=== PATIENT | female | born 1950 | race Caucasian/White ===

== ENCOUNTER 2017-06-27 16:24 | Inpatient (IN) | payer MEDICARE ==
[2017-06-27 16:49] LABS: Actual Bicarbonate (HCO3a) 26.5 mEq/L (22-26); Base Excess (BEa) -6.6 mEq/L (0 (+/-) 2.5); Hematocrit-ABG 54.2 % (36.0-47.0); Hemoglobin (Hb) 16.3 g/dL (12.0-16.0); O2 Tension (PaO2) 93.4 mmHg (80.0-100.0)
[2017-06-27] MEDS ORDERED: Propofol 1,000 MG/100 ML VIAL IV ONE (16:54)
[2017-06-27] MEDS ORDERED: Succinylcholine Chloride 20 MG/ML 10 ml SYRINGE FS ONE (16:54)
[2017-06-27 17:09] LABS: Hemoglobin 17.7 g/dL (12.0-16.0); INR-International Normal Ratio 2.1; Mean Corpuscular HGB CONC 31.9 g/dL (32.0-36.0); Mean Platelet Volume 7.3 fL (7.4-10.4); Platelet Count 199 thou/uL (130-400); Prothrombin Time 23.9 SEC (12.0-14.7); RBC Distribution Width 15.4 % (11.5-14.5); Red Blood Cell (RBC) Count 5.06 mill/uL (4.20-5.40); White Blood Cell (WBC) Count 9.1 thou/uL (4.8-10.8)
[2017-06-27 17:23] LABS: ALT (SGPT) 666 U/L (8-55); AST (SGOT) 677 U/L (5-34); Albumin 3.8 g/dL (3.4-4.8); Alkaline Phosphatase 53 U/L (40-150); Anion Gap 22 mmol/L (10-20); BUN (Urea Nitrogen) 108 mg/dL (9.8-20.1); Bilirubin, Total 0.8 mg/dL (0.2-1.2); Calc. Creatinine Clearance 0 mL/min (70-130); Calcium 8.9 mg/dL (7.8-10.44); Carbon Dioxide 22 mmol/L (23-31); Chloride 91 mmol/L (98-107); Estimated GFR-MDRD 13; Globulin 2.5 g/dL (2.4-3.5); Glucose 141 mg/dL (80-115); Protein, Total 6.3 g/dL (6.0-8.3); Sodium 129 mmol/L (136-145)
[2017-06-27 17:24] LABS: Acetaminophen Less than 6.0 mcg/mL (10.0-30.0); Alcohol Less than 10 mg/dL (Less than 10); Salicylate Less than 8.0 mg/dL (15.0-30.0)
[2017-06-27 17:27] LABS: Troponin I 0.135 ng/mL (< 0.028)
[2017-06-27 17:28] LABS: PTT Greater than 250.0 SEC (22.9-36.1)
[2017-06-27 17:29] LABS: CKMB 8.7 ng/mL (0-6.6)
[2017-06-27] MEDS ORDERED: Vecuronium 10 MG VIAL ONE (17:29)
[2017-06-27] MEDS ORDERED: Water For Inject, Bacteriostat 30 ML ONE (17:30)
[2017-06-27 17:32] LABS: Band 17 % (5-11); Giant Platelets SLIGHT; Large Platelets SLIGHT; Lymphocytes 4 % (21-51); MDiff Complete? YES; Macrocytosis MODERATE=16-30 cells (100X) (0-5/hpf); Monocytes 4 % (0-10); Neutrophil 75 % (42-75); Nucleated RBC 2 % (0); PLT Morphology Comment Appears Adequate; Polychromasia MODERATE = 3-4 cells (100X) (0-2/hpf)
--- NOTE | 2017-06-27 17:36 | RAD ---
PORTABLE CHEST ONE VIEW 06/27/17 at 4:30 p.m. HISTORY: Respiratory failure. Altered mental status. COMPARISON: Comparison made with exam of 07/23/15. FINDINGS/IMPRESSION: There is an endotracheal tube with tip just below the level of the clavicular heads. The nasogastric tube can be traced into the stomach. The heart size is normal. The lungs are well expanded without co nfluent areas of consolidation, pneumothorax, eric pulmonary edema or pleural effusions. There is co ntinued blunting of the left lateral costophrenic angle. Bilateral calcified breast implants are pres ent. POS: [facility]
--- NOTE | 2017-06-27 17:39 | RAD ---
ABDOMEN ONE VIEW: 06/27/17 HISTORY: Nasogastric tube placement. FINDINGS/IMPRESSION: Tip of the nasogastric tube is in the projection of the stomach in the left upper quadrant. The bowel gas pattern is unremarkable. There are degenerative changes in the spine. POS: [facility]
[2017-06-27 17:43] LABS: Bilirubin Small (Negative); Blood, Urine Large (Negative); Glucose, Urine (Dipstick) Negative (Negative); Leukocyte Moderate (Negative); Nitrite Negative (Negative); Protein, Urine (Dipstick) > or equal to 300 mg/dL (Neg-Trace); pH, Urine 5.5 (5.0-9.0)
[2017-06-27 17:45] LABS: Clarity Cloudy (Clear); Specific Gravity, Urine 1.022 (1.002-1.036)
[2017-06-27 17:55] LABS: Amphetamine Not Detected (NotDetected); Bacteria/HPF 4+ HPF (None Seen); Barbiturates Screen Not Detected (NotDetected); Benzodiazepine Screen Not Detected (NotDetected); Cocaine Metabolite Screen Not Detected (NotDetected); Medtox Control Line Valid? VALID (VALID); Medtox Reader # READER 4; Methadone Not Detected (NotDetected); Methamphetamine Not Detected (NotDetected); Opiate Screen Not Detected (NotDetected); Oxycodone Screen Not Detected (NotDetected); Pathc Cast-AUWi Flag 1.46 (0-2.49); Phencyclidine (PCP) Not Detected (NotDetected); Squamous Epithelial 0-3 HPF (0-3); THC/Cannabinoid Screen Not Detected (NotDetected); Tricyclic Screen Not Detected (NotDetected)
[2017-06-27 18:00] LABS: Actual Bicarbonate (HCO3a) 19.9 mEq/L (22-26); Base Excess (BEa) -6.5 mEq/L (0 (+/-) 2.5); CO2 Tension 42.6 mmHg (35.0-45.0); Hematocrit-ABG 49.2 % (36.0-47.0); Hemoglobin (Hb) 15.4 g/dL (12.0-16.0); O2 Tension (PaO2) 228.9 mmHg (80.0-100.0); pH, Arterial 7.29 (7.35-7.45)
[2017-06-27 18:03] LABS: Analyzer IN Cardio ER; Puncture Site RRA
[2017-06-27 18:05] LABS: Analyzer IN Cardio ER; CO2 Tension 94.2 mmHg (35.0-45.0); Puncture Site RRA; pH, Arterial 7.07 (7.35-7.45)
[2017-06-27 18:08] LABS: Hyaline Casts/LPF 0-3 HYALINE CAST LPF (0-3 Hyaline); RBC/HPF GREATER THAN 50-TNTC HPF (0-3); Yeast-All Forms None Seen HPF (None Seen)
[2017-06-27] MEDS ORDERED: Piperacillin/Tazobactam 4.5 GM in Sodium Chloride 0.9% 100 ML IVPB SCH (18:45)
--- NOTE | 2017-06-27 18:51 | RAD ---
PORTABLE CHEST ONE VIEW 06/27/17 at 5:12 p.m. HISTORY: Respiratory failure, central line placement. FINDINGS/IMPRESSION: There has been interval placement of a right internal jugular central line with tip in the projection of the SVC. No pneumothoraces are seen. the remainder of the exam is otherwise stable since earlier exam of 4:30 p.m. POS: [facility]
[2017-06-27] MEDS ORDERED: Sodium Bicarb 50 MEQ/50 ML Abboject 8.4% SYRINGE ONE (19:50)
[2017-06-27] MEDS ORDERED: Calcium Gluc 4.6 MEQ/10 ML (100 MG/ML) ONE (19:50)
[2017-06-27] MEDS ORDERED: Insulin Regular 300 UNITS/3 ML VIAL ONE (19:50)
[2017-06-27] MEDS ORDERED: Norepinephrine 8 MG/0.9% NS 250 ML IVPB PRN (20:08)
[2017-06-27] MEDS ORDERED: Bisacodyl 5 MG TAB PO PRN (20:08)
[2017-06-27] MEDS ORDERED: Bisacodyl 10 MG SUPP PR PRN (20:08)
[2017-06-27] MEDS ORDERED: Ondansetron HCl/PF 4 MG/2 ML Vial IVP PRN (20:08)
[2017-06-27] MEDS ORDERED: Acetaminophen 650 MG Suppository PR PRN (20:08)
[2017-06-27] MEDS ORDERED: RENALLY ADJUST ABX IVPB PRN (20:13)
--- NOTE | 2017-06-27 21:23 | CT ---
CT BRAIN WITHOUT CONTRAST: 06/27/17 HISTORY: Altered mental status. FINDINGS: No previous exams for comparison. There is a few foci of increased attenuation in the right subarachn oid space of the right anterior frontal lobe. Possibility of this representing acute hemorrhage canno t be excluded. No transcortical infarct or midline shift are seen. The ventricular size is normal. Th ere are patchy areas of decreased attenuation in the periventricular white matter consistent with chr onic small vessel ischemic disease. There is coarse calcification in the right posterior centrum semi ovale. The bony calvarium is intact. The visualized paranasal sinuses and mastoid air cells are well aerated. IMPRESSION: Probable small amount of acute subarachnoid hemorrhage. A followup exam is recommended. Discussed over the telephone with ER physician, Dr. Ary Mcfadden at 9:02 p.m. POS: [facility]
[2017-06-27] MEDS ORDERED: Dextrose 50% Abboject 50 ML SYRINGE SLOW IVP SCH (21:30)
[2017-06-27 21:47] LABS: Lactic Acid 2.7 mmol/L (0.5-2.2)
--- NOTE | 2017-06-27 21:48 | HP ---
PRIMARY CARE PHYSICIAN: Unknown. CHIEF COMPLAINT: Mental status changes. HISTORY OF PRESENT ILLNESS: Ms. Mejia is a 66-year-old lady, who was seen at [facility] on 06/27/2017. By the time I saw Ms. Mejia, family members were not available. She is intubated and mechanically v entilated, unable to provide any history or review of systems. Collateral history was obtained from review of medical record as well as discussion with the emergency room physician. She was reportedly found by family members, being minimally responsive and had agonal breathing. EMS was called. STEMI protocol was activated. The patient was only responsive to painful stimuli at th at time. She was also hypotensive. In the emergency room, she was seen by Cardiology Service. It w as felt that her presentation was not secondary to ST-elevation myocardial infarction. While in the emergency room, she continued to worsen in terms of lethargy. She was intubated for air way protection. She also had a right subclavian line placed because of hypotension. REVIEW OF SYSTEMS: Could not be completed because of patient's intubated status. PAST MEDICAL HISTORY: Significant for minimal coronary artery disease on coronary angiogram in 08/06 15, medication noncompliance, tobacco use, pulmonary hypertension of unknown etiology. PAST SURGICAL HISTORY: Hysterectomy. ALLERGIES: ESTROGEN, PROCAINE. HOME MEDICATIONS: Unable to obtain. SOCIAL HISTORY: She is a current smoker. FAMILY HISTORY: Hypertension in her mother, diabetes mellitus in her maternal grandmother. PHYSICAL EXAMINATION: GENERAL: Ms. Mejia is intubated and mechanically ventilated. VITAL SIGNS: Blood pressure is 125/76. Pulse is 77. She is breathing at rate of 20 and saturating 100% on ventilator. She is afebrile. EYES: No scleral icterus. No conjunctival pallor, moist mucosal membranes. Pupils are 3 mm bilater ally, reactive to light. ENT: Endotracheal tube present. NECK: Trachea is midline, no thyromegaly. RESPIRATORY: Accessory muscles of breathing are not active. Chest wall movements are symmetric bila terally. LUNGS: Reveals expiratory wheeze. CARDIOVASCULAR: S1 and S2 are heard, regular. Peripheral pulses palpable. No pericardial rub. She has a right subclavian central line. ABDOMEN: Soft, no guarding or rigidity, bowel sounds are heard. No hepatomegaly or splenomegaly. NEUROLOGICAL: Full neurologic examination not possible secondary to patient's noncooperation. Pupil s as described above. No facial droop. The patient is currently not moving her extremities spontane ously. Deep tendon reflexes are 2+. Plantar reflexes are equivocal bilaterally. MUSCULOSKELETAL: No spontaneous extremity movements at this time. SKIN: No rashes or subcutaneous nodules. PSYCHIATRIC: Unable to assess motor, affect, or orientation to person, place, or time. LABORATORY DATA: Ms. Mejia's labs and investigations were reviewed. I reviewed her electrocardiogr am, which shows normal sinus rhythm with ST depressions in the inferior and anterior lateral leads. I also reviewed her chest x-ray, which does not show any pulmonary infiltrates. Laboratory investiga tion show a normal white count, elevated band neutrophils of 17%, elevated hemoglobin of 17.7, normal platelet count. INR 2.1. Sodium 129, potassium elevated at 6.0, anion gap elevated at 22, blood ur ea nitrogen elevated at 108, creatinine elevated at 3.54, last known creatinine 0.76 on 08/21/2016, l actic acid elevated at 3.1, AST elevated at 677, ALT elevated at 666, normal total bilirubin, normal alkaline phosphatase, indeterminate troponin I of 0.135, elevated BNP of 3689. Urinalysis positive f or protein, ketones, blood, bilirubin, and leukocyte esterase, unremarkable urine toxicology screen, and arterial blood gases with pH of 7.07, pCO2 of 94.2, and pO2 of 93.4. The arterial blood gases have subsequently improved after starting mechanical ventilation, with a pH of 7.29, pCO2 of 42.6, and pO2 of 228.9. ASSESSMENT AND PLAN: Ms. Mejia is a 66-year-old lady, who was seen at [facility] on 06/27/2017. Her problem list includes: 1. Acute respiratory failure: The etiology is unclear, could be secondary to chronic obstructive pu lmonary disease versus infection. I should note that RT reports that patient had copious amounts of thick-yellow secretions on suctioning. The patient will be admitted to the Critical Care Unit for fu rther management. She will be started on broad-spectrum antibiotics. 2. Acute kidney injury: Likely prerenal. We will provide patient with intravenous hydration and re check her creatinine and electrolytes. If not improving, Nephrology Service consultation may be need ed. 3. Hypotension: The patient is currently on Levophed drip, we will continue. 4. Hyperkalemia: The patient is receiving treatments to decrease potassium level. We will recheck her potassium level. 5. Hyponatremia: Provide intravenous fluids, recheck sodium level. 6. Urinary tract infection. Suspected, based on urinalysis. We will continue antibiotics. 7. Supratherapeutic INR: Unclear whether patient is on any anticoagulation. She was transferred fr om this facility to [place] for further workup of her pulmonary hypertension in the past. For now, hailey lawton is awaiting a CT scan of the brain to rule out intracranial bleed, etc. 8. Indeterminate troponin I. Unlikely to be secondary to coronary artery disease, given her recent cardiac catheterization in 2016. Many thanks for allowing me to participate in Ms. Mejia's care. Please feel free to contact me with any questions or concerns. LEVEL OF RISK: High. LEVEL OF COMPLEXITY: High.
[2017-06-27] MEDS ORDERED: Propofol 1,000 MG/100 ML VIAL IV PRN (22:12)
[2017-06-27] MEDS ORDERED: fentaNYL Citrate/PF 2,000 MCG in Sodium Chloride 0.9% 60 ML IV SCH (22:12)
[2017-06-27] MEDS ORDERED: Morphine 2 MG/ML SYRINGE SLOW IVP PRN (22:12)
[2017-06-27] MEDS ORDERED: DISCONTINUE PREVIOUS NARCOTIC PAIN MEDICATIONS AND BENZODIAZEPINES FS SCH (22:12)
[2017-06-27] MEDS ORDERED: Lorazepam 2 MG/ML VIAL SLOW IVP PRN (22:12)
[2017-06-27 23:36] LABS: Potassium, Urine 38.1 mmol/L
[2017-06-28] MEDS: Sodium Chloride 0.9% 1,000 ML IV SCH ×3 (00:45→22:14)
[2017-06-28] MEDS: Piperacillin/Tazobactam 2.25 GM in Sodium Chloride 0.9% 100 ML IVPB SCH ×2 (01:36→11:44)
[2017-06-28 04:51] LABS: Anion Gap 21 mmol/L (10-20); BUN (Urea Nitrogen) 101 mg/dL (9.8-20.1); Calc. Creatinine Clearance 15 mL/min (70-130); Calcium 8.2 mg/dL (7.8-10.44); Carbon Dioxide 23 mmol/L (23-31); Chloride 97 mmol/L (98-107); Estimated GFR-MDRD 16; Glucose 79 mg/dL (80-115); Potassium 4.5 mmol/L (3.5-5.1); Sodium 136 mmol/L (136-145)
[2017-06-28 04:59] LABS: #Lymphocytes 0.8 thou/uL (1.20-3.40); #Monocytes 0.8 thou/uL (0.11-0.59); #Neutrophils 10.4 thou/uL (1.40-6.50); %Eosinophils 0.1 % (0.0-10.0); %Lymphocytes 6.4 % (21.0-51.0); %Monocytes 6.8 % (0.0-10.0); %Neutrophils 86.8 % (42.0-75.0); Hemoglobin 16.6 g/dL (12.0-16.0); Mean Corpuscular HGB CONC 32.5 g/dL (32.0-36.0); Mean Corpuscular Hemoglobin 34.6 pg (27.0-31.0); Platelet Count 185 thou/uL (130-400); RBC Distribution Width 15.1 % (11.5-14.5); White Blood Cell (WBC) Count 11.9 thou/uL (4.8-10.8)
[2017-06-28 05:00] LABS: INR-International Normal Ratio 1.7; Prothrombin Time 20.9 SEC (12.0-14.7)
--- NOTE | 2017-06-28 07:50 | CT ---
PRELIMINARY REPORT/[facility]/EMERGENCY AFTER HOURS PROCEDURE: EXAM: CT Head Without Intravenous Contrast EXAM DATE/TIME: Exam ordered 06/28/2017 3:37 AM CLINICAL HISTORY: 66 years old, female; Signs and symptoms; Altered mental status/memory loss; Patient HX: Ams/possible small ich TECHNIQUE: Axial computed tomography images of the head/brain without intravenous contrast. COMPARISON: CT Brain WO Con 2017-06-27 20:48 FINDINGS: Brain: Small inferior right frontal subarachnoid hemorrhage, stable compared to the prior study. 1 cm calcification in the superior right frontal white matter may be dystrophic, could be secondary to pr ior infection, or could signify the presence of an AVM. Volume loss and chronic small vessel ischemic change. Ventricles: Unremarkable. No ventriculomegaly. Bones/joints: Unremarkable. No acute fracture. Soft tissues: Unremarkable. Sinuses: Unremarkable as visualized. No acute sinusitis. Mastoid air cells: Unremarkable as visualized. No mastoid effusion. IMPRESSION: 1. Small inferior right frontal subarachnoid hemorrhage, stable compared to the prior study. 2. 1 cm calcification in the superior right frontal white matter may be dystrophic, could be secondar y to prior infection, or could signify the presence of an AVM. Thank you for allowing us to participate in the care of your patient. Dictated and Authenticated by: Ramón Schmitt MD 06/28/2017 4:03 AM Central Time ([place] & [place]) FINAL REPORT EMERGENCY AFTER HOURS HEAD CT WITHOUT CONTRAST: Date: 06/28/17 COMPARISON: 06/27/17. HISTORY: Reevaluate intracranial hemorrhage. FINDINGS: Imaged paranasal sinuses and mastoid air cells are well aerated. No displaced calvarial fracture. Stable nonspecific dystrophic calcification noted within the deep white matter on the right posterior ly. There is small volume subarachnoid blood in the right frontal region, similar when compared to the pr ior exam. No midline shift or mass effect is noted. IMPRESSION: Stable head CT as detailed above. I agree with the preliminary report given by Erin. POS: [facility]
[2017-06-28 07:58] LABS: Actual Bicarbonate (HCO3a) 22.5 mEq/L (22-26); CO2 Tension 38.1 mmHg (35.0-45.0); O2 Tension (PaO2) 98.5 mmHg (80.0-100.0); pH, Arterial 7.39 (7.35-7.45)
[2017-06-28 07:59] LABS: Hemoglobin (Hb) 16.2 g/dL (12.0-16.0)
[2017-06-28 08:00] LABS: ALV-art Gradient 139.075 (0-20); Calcium, Ionized 1.2 mmol/L (1.12-1.30); Puncture Site LRA
[2017-06-28] MEDS ORDERED: Prevnar 13-Val Conj/PF 0.5 ML SYRINGE IM ONE (09:00)
[2017-06-28] MEDS ORDERED: FLU VACC TS2017-18 (>65YR) 0.5 ML SYRINGE IM ONE (09:00)
[2017-06-28] MEDS ORDERED: DC Sedation Protocol FS ONE (11:08)
[2017-06-28] MEDS ORDERED: Piperacillin/Tazobactam 2.25 GM in Sodium Chloride 0.9% 50 ML IVPB SCH ×2 (11:15→18:00)
--- NOTE | 2017-06-28 11:38 | CON ---
DATE OF CONSULTATION: 06/28/2017 This is a 66-year-old cachectic female who was seeing Dr. Almaguer in the past. She came in last nigh t with mental status change as per the history obtained. She is currently intubated on the vent, obv iously not able to give any history, but she is from [place]. Previous admission states she had chr onic obstructive pulmonary disease, end-stage, ongoing tobacco abuse and pulmonary hypertension probdonato navarrete from chronic lung disease. EMS stated that she was found by family members, but there are none p resent here. Sats were in the 80s, unresponsive. Blood pressure was low 69/41. PAST MEDICAL HISTORY: Pertinent for previous pneumonia, previous congestive heart failure, though la st echo shows ejection fraction was normal, chronic obstructive pulmonary disease. She still smokes. Unable to get any medicine at this time. PAST SURGICAL HISTORY: Previous surgeries from previous records including previous hysterectomy. Apparently she has been noncompliant in the past. MEDICATIONS: During the previous discharge summary her medication presumably had included Zocor, pre dnisone, Lasix. ALLERGIES: Allergies at this time are difficult to obtain, but apparently has included ESTROGENS. REVIEW OF SYSTEMS: Unobtainable, the patient is on the vent. PHYSICAL EXAMINATION: GENERAL: She is awake, responsive. VITAL SIGNS: Blood pressure 100/80, pulse 88, sats 100%. CHEST: Chest revealed decreased breath sounds, no wheezing. CARDIAC: Normal S1, normal S2. No gallops. ABDOMEN: Soft, no masses. LABORATORY: White count 11,000, H&H 16 and 51, platelet count is normal. Creatinine is elevated at 2.9, BUN is 100. This appears to be prerenal in the past. Numbers were otherwise unremarkable. In fact, kidney function in 08/2016 was normal. Chest x-ray shows the previously described bilateral breast transplant. IJ in place. Otherwise no a cute infiltrates were seen. CT of the head shows a frontal subarachnoid hemorrhage. IMPRESSION: 1. Respiratory failure. 2. Ongoing tobacco abuse. 3. Pulmonary hypertension. 4. Subarachnoid hemorrhage. PLAN: Will try and get additional information when the son arrives. I am going to discontinue all s edation. I have started neb treatments, antibiotics adjusted for renal failure. She is not weanable at this time. Will start nutrition in the next 24-48 hours. Forty-five minute critical care time.
--- NOTE | 2017-06-28 12:34 | PDOC.PN ---
- Subjective Encounter Start Date: 06/28/17 Encounter Start Time: 09:20 Pt seen for followup re: acute respiratory failure. Intubated, attempting to communicate but unable to, unable to obtain ROS. - Objective MAR Reviewed: Yes Vital Signs & Weight: Vital Signs (12 hours) Temp Pulse Resp BP Pulse Ox 06/28/17 10:00 20 06/28/17 08:25 98.7 F 90 20 95 06/28/17 08:00 98.7 F 20 06/28/17 07:45 87 89/53 L 06/28/17 07:42 85 20 99 06/28/17 05:35 20 06/28/17 04:00 98.6 F 20 06/28/17 02:38 87 06/28/17 02:00 20 Most Recent Monitor Data Heart Rate from ECG 108 NIBP 96/55 NIBP BP-Mean 62 Respiration from ECG 14 SpO2 93 I&O: 06/27/17 06/28/17 06/29/17 06:59 06:59 06:59 Intake Total 608.3 Output Total 365 475 Balance 243.3 -475 Result Diagrams: 06/28/17 04:25 06/28/17 04:25 Additional Labs: Accuchecks 06/27/17 19:34 POC Glucose 150 H EKG Reviewed by me: Yes (Tele: NSR) Phys Exam - Physical Examination Intubated HEENT: moist MMs, sclera anicteric ETT+ Neck: no nodes Respiratory: no wheezing, no rales, no rhonchi, clear to auscultation bilateral Cardiovascular: RRR, no rub Gastrointestinal: soft, non-tender, no distention, positive bowel sounds Musculoskeletal: pulses present Neurological: moves all 4 limbs Psychiatric: normal affect Deviation from normal: Unable to assess orientation to person, place or time Dx/Plan (1) Acute hypercapnic respiratory failure Code(s): J96.02 - ACUTE RESPIRATORY FAILURE WITH HYPERCAPNIA Status: Acute (2) KWASI (acute kidney injury) Code(s): N17.9 - ACUTE KIDNEY FAILURE, UNSPECIFIED Status: Acute (3) Intracranial bleed Code(s): I62.9 - NONTRAUMATIC INTRACRANIAL HEMORRHAGE, UNSPECIFIED Status: Acute (4) Abnormal LFTs Code(s): R79.89 - OTHER SPECIFIED ABNORMAL FINDINGS OF BLOOD CHEMISTRY Status : Acute (5) Tobacco dependence Code(s): F17.200 - NICOTINE DEPENDENCE, UNSPECIFIED, UNCOMPLICATED Status: Chronic (6) Pulmonary hypertension Code(s): I27.20 - PULMONARY HYPERTENSION, UNSPECIFIED Status: Chronic - Plan continue antibiotics, PT/OT, DVT proph w/SCDs * . Continue IV antibiotics as below. Pt shakes her head when asked if she is on any blood thinners, unsure why INR is high (trending down). Recheck LFTs, check CK to r/o rhabdomyolysis. Creatinine improving. Neurosurgery consulted re: opinion and management of IC bleed. Review of Systems - Medications/Allergies Allergies/Adverse Reactions: Allergies Allergy/AdvReac Type Severity Reaction Status Date / Time estrogens, conjugated Allergy Verified 11/18/14 17:33 [From Premarin] procaine HCl [From Novocain] Allergy Verified 11/18/14 17:33 figs Allergy Uncoded 07/21/15 20:06 fragrance Allergy Uncoded 07/21/15 20:06 tide Allergy Uncoded 07/21/15 20:06 Medications: Current Medications Acetaminophen (Tylenol) 650 mg NH Q4H PRN PRN Reason: Headache/Fever or Pain Acetaminophen (Tylenol) 650 mg PO Q4H PRN PRN Reason: Headache/Fever or Pain Albuterol/Ipratropium (Duoneb) 3 ml NEB [id number] [facility] Last Admin: 06/28/17 07:42 Dose: 3 ml Albuterol/Ipratropium (Duoneb) 3 ml NEB Q6H PRN PRN Reason: SOB &/or Wheezing Bisacodyl (Dulcolax) 10 mg NH Q24H PRN PRN Reason: Constipation Bisacodyl (Dulcolax) 10 mg PO DAILYPRN PRN PRN Reason: Constipation Norepinephrine Bitartrate (Levophed) 250 mls @ 0 mls/hr IVPB PRN PRN; Protocol ; Titrate PRN Reason: To maintain MAP > 65 Sodium Chloride (Normal Saline 0.9%) 1,000 mls @ 100 mls/hr IV .Q10H [facility] Last Admin: 06/28/17 11:56 Dose: 1,000 mls Levofloxacin 500 mg/ Device 100 mls @ 100 mls/hr IVPB Q48H [facility] Piperacillin Sod/Tazobactam (Sod 2.25 gm/ Sodium Chloride) 50 mls @ 100 mls/hr IVPB 0200,1000,1800 JYOTI Piperacillin Sod/Tazobactam (Sod 2.25 gm/ Sodium Chloride) 50 mls @ 100 mls/hr IVPB NOW JYOTI Stop: 06/28/17 14:00 Last Admin: 06/28/17 11:54 Dose: 50 mls Methylprednisolone Sodium Succinate (Solu-Medrol) 40 mg IVP Q6HR [facility] Miscellaneous Medication (Pharmacy To Dose) 1 each IVPB PRN PRN PRN Reason: VANC/RENAL Pharmacy to dose Ondansetron HCl (Zofran) 4 mg IVP Q6H PRN PRN Reason: Nausea/Vomiting Sodium Chloride (Flush - Normal Saline) 10 ml IVF Q12HR [facility] Last Admin: 06/28/17 09:17 Dose: 10 ml Sodium Chloride (Flush - Normal Saline) 10 ml IVF PRN PRN PRN Reason: Saline Flush
[2017-06-28 14:18] LABS: ALT (SGPT) 711 U/L (8-55); AST (SGOT) 681 U/L (5-34); Albumin 3.1 g/dL (3.4-4.8); Alkaline Phosphatase 47 U/L (40-150); Bilirubin, Direct 0.7 mg/dL (0.1-0.3); CK (CPK) 176 U/L (29-168); Protein, Total 5.1 g/dL (6.0-8.3)
[2017-06-28] MEDS ORDERED: Vancomycin HCl 1 GM in Premix Bag 1 BAG IVPB SCH (21:00)
[2017-06-28] MEDS ORDERED: Lorazepam 2 MG/ML VIAL SLOW IVP SCH (22:00)
--- NOTE | 2017-06-28 22:55 | CON ---
DATE OF CONSULTATION: 06/28/2017 HISTORY OF PRESENT ILLNESS: Ms. Mejia is a 66-year-old female who I saw in the ICU room this aftern oon. She presented yesterday after she was found by her family in her house. At that time, she was minimally responsive and had agonal breathing. She was responding to painful stimuli at that time an d she was hypotensive. Ms. Mejia was intubated and mechanically ventilated at that time and brought to [facility] emergency Department. She had a subclavian line in place because of hypotension. S he was very lethargic. At [facility], she was found to be hyperkalemic. She had acute resp iratory failure and sepsis as well as a UTI and her BNP was 3689. CT scan of her brain was done yest erday and showed a small right frontal subarachnoid hemorrhage. A repeat CT scan was done today and the right frontal subarachnoid hemorrhage was stable. There is also an unusual parenchymal calcifica tion in the periventricular area on the right hemisphere. On exam, she was alert and oriented x4. S he had been extubated today. No cranial nerve deficits were found. She answers my questions appropr iately and her [place] Coma Scale is 15. The patient cannot remember anything about the event and th ere were no witnesses. She does not recall the worst headache of her life and the area where the sub arachnoid hemorrhage is likely due to a fall. Neurosurgery was consulted for the findings on the CT scan of the brain. REVIEW OF SYSTEMS: A 10-point review of systems completed and otherwise negative unless stated in th e above HPI. PAST MEDICAL HISTORY: Significant for coronary artery disease and coronary angiogram in 07/19/2015, medications noncompliance, tobacco use and pulmonary hypertension of unknown etiology. PAST SURGICAL HISTORY: Hysterectomy. ALLERGIES: ESTROGEN and PROCAINE. HOME MEDICATIONS: Unable to obtain. SOCIAL HISTORY: The patient is a current smoker. FAMILY HISTORY: Hypertension in her mother, diabetes mellitus in her maternal grandmother. PHYSICAL EXAMINATION: VITAL SIGNS: Today were stable. She is slightly hypotensive at 92/58. HEENT: Normocephalic and atraumatic. Hearing intact. Moist mucous membranes. Trachea is midline. EYES: Pupils are equal and reactive to light. Extraocular muscles are intact. Sclerae is white and nonicteric. CARDIOVASCULAR: Normal S1 and S2. Heart sounds are heard. Peripheral pulses are +2 bilaterally in the upper and lower extremities. There is no distal cyanosis or clubbing noted. RESPIRATORY: The patient had bilateral symmetric chest rise and appears to be in no shortness of melita ath. NEUROLOGIC: The patient has full cranial neurologic examination, it is intact. The patient has no c erebellar signs. No facial droop. She answered my questions appropriately. She has a GCS of 15. D eep tendon reflexes are +2. She is moving her upper and lower extremities bilaterally spontaneously. MUSCULOSKELETAL: The patient has good strength in the upper and lower extremities bilaterally in all muscle groups. LABORATORY DATA: Hematology: White blood cell count is 11.9, hemoglobin is 16.6 and hematocrit is 5 1. Coagulation: PT is 20.9, INR is 1.78 and APTT is greater than 250. Blood gas; ABG hemoglobin is 16.2. On chemistry exam, direct bilirubin is 0.7, AST is 681 and ALT is 711. Creatinine kinase is 176, tot al serum protein is 5.1 liters and albumin is 3.1 liters. On urine, she has UTI. Toxicology: Acetaminophen is less than 6 and salicylates less than 8, although that is negative. ASSESSMENT: Ms. eMjia is a 66-year-old female who presented to [facility] with altered m ental status, acute respiratory failure, acute kidney injury, hypotension, hyperkalemia, hyponatremia , urinary tract infection and supratherapeutic INR. PLAN: From neurosurgical standpoint, there is no neurosurgical intervention needed at this time. A repeat CT scan of the brain showed subarachnoid hemorrhage. It is stable and is likely from an area of the brain that is from a fall. There is also a right-sided periventricular calcifications that is unusual. I will order an MRI with and without contrast to investigate this. I have discussed this case with Dr. Li and he has evaluated the images and agrees with my plan. If there are any fu rther questions, please feel free to call Neurosurgery.
[2017-06-29] MEDS: Piperacillin/Tazobactam 2.25 GM in Sodium Chloride 0.9% 100 ML IVPB SCH ×3 (01:12→18:11)
[2017-06-29 05:18] LABS: #Lymphocytes 0.2 thou/uL (1.20-3.40); #Monocytes 0.1 thou/uL (0.11-0.59); #Neutrophils 8.8 thou/uL (1.40-6.50); %Eosinophils 0.1 % (0.0-10.0); %Lymphocytes 1.8 % (21.0-51.0); %Monocytes 1.1 % (0.0-10.0); Hemoglobin 16.5 g/dL (12.0-16.0); Mean Corpuscular HGB CONC 31.6 g/dL (32.0-36.0); Mean Corpuscular Hemoglobin 34.7 pg (27.0-31.0); Mean Platelet Volume 7.2 fL (7.4-10.4); Platelet Count 163 thou/uL (130-400); RBC Distribution Width 15.8 % (11.5-14.5); Red Blood Cell (RBC) Count 4.75 mill/uL (4.20-5.40)
[2017-06-29 05:19] LABS: INR-International Normal Ratio 1.3; Prothrombin Time 16.7 SEC (12.0-14.7)
[2017-06-29] MEDS ORDERED: Norepinephrine 8 MG in Sodium Chloride 0.9% 250 ML 242 ML IVPB PRN (05:28)
[2017-06-29 06:04] LABS: Anion Gap 16 mmol/L (10-20); BUN (Urea Nitrogen) 74 mg/dL (9.8-20.1); Calc. Creatinine Clearance 35 mL/min (70-130); Calcium 8.7 mg/dL (7.8-10.44); Carbon Dioxide 26 mmol/L (23-31); Chloride 103 mmol/L (98-107); Estimated GFR-MDRD 40; Glucose 160 mg/dL (80-115); Phosphorus 5.4 mg/dL (2.3-4.7); Potassium 4.5 mmol/L (3.5-5.1); Sodium 140 mmol/L (136-145)
[2017-06-29] MEDS: Sodium Chloride 0.9% 1,000 ML IV SCH ×2 (08:02→18:25)
--- NOTE | 2017-06-29 08:11 | PRG ---
DATE OF SERVICE: 06/29/2017 Ms. Mejia is a 66-year-old female who I saw in her room this morning in the ICU. She was up most of the night. Her family visited last night and then she did not sleep well until about 3 a.m. This m orning Ms. Mejia, we are following her for a right frontal subarachnoid hemorrhage. She had an unus ual calcification in the right periventricular area in which we are going to evaluate with an MRI thi s morning. Her AST and ALT have been elevated at 681 and 711 respectively. Her creatine kinase is 1 76. Overnight, she has been on Levophed and she is slightly hypotensive at 92/51. Her respiratory r ate is 16, pulse is 98. Ms. Mejia's neurologic exam this morning is unchanged and she responds ap propriately and localizes to pain when stimulated. We will follow up with a repeat CT scan of the br ain in 2-3 weeks in our office. If there are any further questions, please feel free to contact Neurosurgery.
--- NOTE | 2017-06-29 10:06 | PRG ---
DATE OF SERVICE: 06/29/2017 I saw Ms. Mejia in her ICU room this morning. I personally interviewed and examined the patient an d agree with documentation of Gerhard Bailey PA-C, dated 06/28/2017. Briefly, Lee Ann Mejia is a 66-year-old woman who was found down by her family at home 2 days ago. She was brought to the emergency department where she was found to have some acute renal failure and benedicto er failure. CT imaging of the brain revealed some subarachnoid blood in the right frontal sulci as w ell as a calcified lesion in the centrum semiovale of the right hemisphere. Follow up CT scans did n ot show any increase in the blood. Neurosurgery was consulted yesterday. When I see Ms. Mejia this morning she is awake. She says some words, but they are not making sense until I stimulate her, then she says, "Oh, good morning doctor". She moves all her extremities well, but it takes some repetitive stimulation and asking before she can follow commands. She is quite pu rposeful and awake. I reviewed CT imaging and the subarachnoid blood in the right frontal sulci is not causing mass effec t. It is in a location that would be more consistent with traumatic subarachnoid hemorrhage, perhaps she fell and hit her head and was found down. It is less likely to be related to any spontaneous he morrhage. The lesion in the brain is a bit concerning. This calcified lesion could represent an old infection, a calcified vessel, associated with some sort of vascular malformation, tumor, or other rarer etiolo gies. We will get an MRI scan to assess the lesion and see if there is anything concerning there. O [place], I do not think neurosurgical intervention is going to help her. We will follow along with her care and once MR imaging is available we will return to discuss the res ults with her.
--- NOTE | 2017-06-29 10:34 | PRG ---
DATE OF SERVICE: 06/29/2017 PHYSICAL EXAMINATION: VITAL SIGNS: Blood pressure 112/60, pulse 87, O2 sats 98 on 4 liters, pulse 109, respirations 18. I 's and O's are 2679 in, 2350 out. CHEST: Chest reveals decreased breath sounds, no wheezing. CARDIAC: Normal S1, S2. NEUROLOGIC: He is encephalopathic. LABORATORY: Creatinine 1.3, BUN 74, AST and ALT are elevated at [address] showed subarachnoid hemorrhage. White count 9000, H&H 16 and 42, platelet count 163. IMPRESSION: 1. Status post subarachnoid hemorrhage. 2. Chronic obstructive pulmonary disease. 3. Renal failure. 4. Encephalopathy. PLAN: Continue neb treatments, empiric antibiotics. Input from Neurology. She was extubated yesterday and appears to be in no distress at this time. One-half hour critical care time. I will follow.
--- NOTE | 2017-06-29 10:55 | MRI ---
BRAIN MRI WITHOUT CONTRAST: Date: 06/29/17 COMPARISON: None. HISTORY: Evaluate intracranial calcification seen on prior CT. TECHNIQUE: Multiplanar, multisequence MR imaging of the brain is obtained without contrast. FINDINGS: The diffusion-weighted imaging demonstrates a focal area of signal abnormality in the deep white manuel er posteriorly on the right, likely associated with the calcifications seen in this region on recent CT. There is a punctate focus of increased signal in the diffusion-weighted imaging within the right cerebellar hemisphere which likely represents T2 shine-through. There are two vague areas of increased signal intensity on the diffusion-weighted imaging which appea r to represent a punctate foci of restricted diffusion. These punctate foci within the left frontal r egion measure up to 3.0 mm and may represent punctate foci of acute infarction in the proper clinical setting. Given their small size, it is conceivable that they represent a degree of T2 shine-through. The gradient echo imaging demonstrates a focal area of blooming artifact within the deep white matter posteriorly on the right, correlating with the previously noted calcification. Regional bone marrow signal intensity appears grossly unremarkable. Detailed assessment is slightly l imited secondary to patient motion artifact. Arterial flow-voids at axial level of skull base appear grossly unremarkable on T2-weighted imaging. FLAIR and T2-weighted imaging demonstrate numerous foci of increased T2 and FLAIR signal within the p eriventricular, deep, and subcortical white matter, as well as within the destini, suggesting small vess el disease. IMPRESSION: 1. Tiny punctate foci of acute infarction versus T2 shine-through and left frontal lobe measuring up to 3.0 mm. 2. Probable punctate focus of T2 shine-through in right cerebellar hemisphere. 3. Focus of blooming artifact in deep white matter posteriorly on the right likely correlates with t he dystrophic focal calcification seen on the prior exam. This could be better assessed via follow-up imaging with and without contrast media as this calcification is fairly unusual in location and size on CT. 4. Evidence of small vessel disease. POS: DULCE MARIA
--- NOTE | 2017-06-29 11:33 | PDOC.PN ---
- Subjective Encounter Start Date: 06/29/17 Encounter Start Time: 08:40 Pt seen for followup re: acute respiratory failure. Extubated yesterday, mumbles, unable to complete ROS. - Objective Vital Signs & Weight: Vital Signs (12 hours) Temp Pulse Resp Pulse Ox 06/29/17 08:00 98.4 F 98 16 94 L 06/29/17 07:30 100 06/29/17 07:27 98 16 100 06/29/17 07:00 98.4 F 06/29/17 05:53 97.5 F L 06/29/17 04:00 98.4 F 06/29/17 01:00 98.6 F 06/29/17 00:00 96 Weight Weight 119 lb 0.794 oz Most Recent Monitor Data Heart Rate from ECG 109 NIBP 112/64 NIBP BP-Mean 80 Respiration from ECG 21 SpO2 92 I&O: 06/28/17 06/29/17 06/30/17 06:59 06:59 06:59 Intake Total 608.3 2679.4 Output Total 365 2035 300 Balance 243.3 644.4 -300 Result Diagrams: 06/29/17 04:30 06/29/17 04:30 Phys Exam - Physical Examination Constitutional: NAD HEENT: moist MMs Neck: supple Respiratory: clear to auscultation bilateral Cardiovascular: RRR Gastrointestinal: soft Neurological: moves all 4 limbs Psychiatric: normal affect Dx/Plan (1) Acute hypercapnic respiratory failure Code(s): J96.02 - ACUTE RESPIRATORY FAILURE WITH HYPERCAPNIA Status: Acute (2) KWASI (acute kidney injury) Code(s): N17.9 - ACUTE KIDNEY FAILURE, UNSPECIFIED Status: Acute (3) Intracranial bleed Code(s): I62.9 - NONTRAUMATIC INTRACRANIAL HEMORRHAGE, UNSPECIFIED Status: Acute (4) Abnormal LFTs Code(s): R79.89 - OTHER SPECIFIED ABNORMAL FINDINGS OF BLOOD CHEMISTRY Status : Acute (5) Tobacco dependence Code(s): F17.200 - NICOTINE DEPENDENCE, UNSPECIFIED, UNCOMPLICATED Status: Chronic (6) Pulmonary hypertension Code(s): I27.20 - PULMONARY HYPERTENSION, UNSPECIFIED Status: Chronic - Plan continue antibiotics, PT/OT, DVT proph w/SCDs * . Creatinine improved to 1.3 today. Continue IV antibiotics as below. Appreciate PCCM, neurosurgery input. Check abdo US re: LFT abnormalities. Review of Systems - Medications/Allergies Allergies/Adverse Reactions: Allergies Allergy/AdvReac Type Severity Reaction Status Date / Time estrogens, conjugated Allergy Verified 11/18/14 17:33 [From Premarin] procaine HCl [From Novocain] Allergy Verified 11/18/14 17:33 figs Allergy Uncoded 07/21/15 20:06 fragrance Allergy Uncoded 07/21/15 20:06 tide Allergy Uncoded 07/21/15 20:06 Medications: Current Medications Acetaminophen (Tylenol) 650 mg W[place] Q4H PRN PRN Reason: Headache/Fever or Pain Acetaminophen (Tylenol) 650 mg PO Q4H PRN PRN Reason: Headache/Fever or Pain Albuterol/Ipratropium (Duoneb) 3 ml NEB [id number] [facility] Last Admin: 06/29/17 07:27 Dose: 3 ml Albuterol/Ipratropium (Duoneb) 3 ml NEB Q6H PRN PRN Reason: SOB &/or Wheezing Bisacodyl (Dulcolax) 10 mg WV Q24H PRN PRN Reason: Constipation Bisacodyl (Dulcolax) 10 mg PO DAILYPRN PRN PRN Reason: Constipation Sodium Chloride (Normal Saline 0.9%) 1,000 mls @ 100 mls/hr IV .Q10H [facility] Last Admin: 06/29/17 08:02 Dose: 1,000 mls Levofloxacin 500 mg/ Device 100 mls @ 100 mls/hr IVPB Q48H [facility] Piperacillin Sod/Tazobactam (Sod 2.25 gm/ Sodium Chloride) 100 mls @ 200 mls/ hr IVPB 0200,1000,1800 [facility] Last Admin: 06/29/17 09:23 Dose: 100 mls Norepinephrine Bitartrate 8 mg (/ Sodium Chloride) 250 mls @ 0 mls/hr IVPB PRN PRN; Protocol; Titrate PRN Reason: To maintain MAP > 65 Last Admin: 06/29/17 05:51 Dose: 250 mls Methylprednisolone Sodium Succinate (Solu-Medrol) 40 mg IVP Q6HR [facility] Last Admin: 06/29/17 05:08 Dose: 40 mg Miscellaneous Medication (Pharmacy To Dose) 1 each IVPB PRN PRN PRN Reason: RENAL Pharmacy to dose Ondansetron HCl (Zofran) 4 mg IVP Q6H PRN PRN Reason: Nausea/Vomiting Sodium Chloride (Flush - Normal Saline) 10 ml IVF Q12HR [facility] Last Admin: 06/29/17 09:23 Dose: 10 ml Sodium Chloride (Flush - Normal Saline) 10 ml IVF PRN PRN PRN Reason: Saline Flush
--- NOTE | 2017-06-29 13:54 | ULT ---
ABDOMINAL ULTRASOUND COMPLETE: Date: 06/29/17 HISTORY: 66-year-old female with abnormal LFTs. FINDINGS: Multiple gallstones are noted within the gallbladder, with some borderline gallbladder wall thickenin g. There is some ascites. There does appear to be some right pleural effusion. Common bile duct 0.5 c m. No focal liver mass. Visualized pancreas, IVC, aorta, and spleen are unremarkable. No evidence for renal hydronephrosis. IMPRESSION: Multiple cholelithiasis without ductal dilatation. Minimal ascites. Small right pleural effusion. POS: [facility]
[2017-06-29] MEDS ORDERED: Vancomycin HCl 1 GM in Premix Bag 1 BAG IVPB SCH (21:00)
[2017-06-30] MEDS: Piperacillin/Tazobactam 2.25 GM in Sodium Chloride 0.9% 100 ML IVPB SCH ×3 (02:15→18:16)
[2017-06-30] MEDS: Sodium Chloride 0.9% 1,000 ML IV SCH ×2 (04:17→18:16)
[2017-06-30 04:59] LABS: Anion Gap 14 mmol/L (10-20); BUN (Urea Nitrogen) 47 mg/dL (9.8-20.1); Calc. Creatinine Clearance 59 mL/min (70-130); Calcium 9.2 mg/dL (7.8-10.44); Carbon Dioxide 27 mmol/L (23-31); Chloride 108 mmol/L (98-107); Estimated GFR-MDRD 73; Glucose 141 mg/dL (80-115); Potassium 4.8 mmol/L (3.5-5.1); Sodium 144 mmol/L (136-145)
[2017-06-30 05:10] LABS: Band 8 % (5-11); Hemoglobin 15.6 g/dL (12.0-16.0); Hypochromia SLIGHT = 6-15 cells (100X) (0-5/hpf); Lymphocytes 1 % (21-51); MDiff Complete? YES; Macrocytosis MODERATE=16-30 cells (100X) (0-5/hpf); Mean Corpuscular HGB CONC 30.5 g/dL (32.0-36.0); Mean Platelet Volume 6.9 fL (7.4-10.4); Metamyelocyte 1 % (0-0); Monocytes 2 % (0-10); Neutrophil 87 % (42-75); PLT Morphology Comment Appears Adequate; Platelet Count 134 thou/uL (130-400); Reactive Lymphocytes 1 % (0-10); Red Blood Cell (RBC) Count 4.59 mill/uL (4.20-5.40); White Blood Cell (WBC) Count 7.7 thou/uL (4.8-10.8)
--- NOTE | 2017-06-30 09:05 | PRG ---
DATE OF SERVICE: 06/30/2017 I saw Lee Ann Mejia this morning on rounds. She remains in the ICU. An MRI scan of the brain was done yesterday. As I examined Ms. Mejia this morning, she is wide awake, she is talking, and her speech makes much m ore sense today than it did yesterday. She asks about bringing her, her breakfast. She realizes she is in the hospital. She has questions about the results of her MRI scan, which shows much more insi ght than she had yesterday. I reviewed the MRI scan. There are punctate areas of restricted diffusion in the white matter of the left hemisphere and 1 possible punctate area near the calcification on the right centrum semiovale. There is no extra flow voids around that calcification. There is no hint that this is an AVM. That calcification in the right hemisphere could be dystrophic, congenital, or related to prior hemorrhag e. I do not see any evidence of tumor. Putting her history together, I think Ms. Mejia suffered a fall at home. I think the punctate areas of restricted diffusion are diffuse axonal injury. I think she has traumatic subarachnoid hemorrhag e that was nonsurgical and is already going away. I do not believe that she has any indication for n eurosurgical intervention. She may need placement at rehab to ensure safety before she returns to in dependence. Please call our neurosurgery team back if we can offer further suggestions.
--- NOTE | 2017-06-30 09:33 | PRG ---
DATE OF SERVICE: 06/30/2017 Ms. Mejia is a 66-year-old female, who I saw in her room this morning in the ICU. Overnight, there have been no acute events, and her neurologic status continues to improve. Her vital signs, she has been slightly tachycardic this morning at a heart rate of 106; however, her blood pressure has been s lightly hypotensive and she has been on low-dose Levophed. In the last 2 hours, she has not required any Levophed. On labs this morning, white blood cell count has been decreased from yesterday from 9 to 7.7 and hemoglobin is 15.6. She seems to be doing quite well. She had a brain MRI yesterday wit hout contrast, because of creatinine function, that showed probable punctate focus of T2 shine throug h the right cerebellar hemisphere, punctate foci of acute infarction versus T2 shine through, measuri ng 3 mm. Also, see a blooming artifact of the deep white matter posteriorly on the right, likely cor relates with the dystrophic focal calcification on the prior exam that could be better assessed with CT scan. There is also small vessel disease. This morning, she has a GCS of 15. She answers all my questions appropriately. She is moving all of her extremities in the upper and lower bilaterally an d she has no dermatomal or sensory or focal motor weakness. From a neurosurgical standpoint, when estrada harley is off Levophed, it is okay to be moved to the floor. Today, she can continue to work with physica l therapy. If there are any further questions, please feel free to contact Neurosurgery.
--- NOTE | 2017-06-30 11:06 | PDOC.PN ---
- Subjective Encounter Start Date: 06/30/17 Encounter Start Time: 11:04 Patient seen and examined, family at bedside, patient is still not fully arousable. - Objective Vital Signs & Weight: Vital Signs (12 hours) Temp Pulse Resp Pulse Ox 06/30/17 08:00 97.7 F 106 H 21 H 92 L 06/30/17 07:53 106 H 21 H 06/30/17 07:00 97.7 F 06/30/17 04:00 97.9 F 06/30/17 00:35 103 H 19 95 06/30/17 00:00 98.0 F 06/29/17 23:20 98.4 F 103 H 19 98 Weight Weight 118 lb 9.739 oz Most Recent Monitor Data Heart Rate from ECG 102 NIBP 105/64 NIBP BP-Mean 82 Respiration from ECG 20 SpO2 95 I&O: 06/29/17 06/30/17 07/01/17 06:59 06:59 06:59 Intake Total 2679.4 2856 200 Output Total 2035 1715 190 Balance 644.4 1141 10 Result Diagrams: 06/30/17 04:15 06/30/17 04:15 Phys Exam - Physical Examination Constitutional: NAD HEENT: moist MMs, sclera anicteric Neck: no nodes, no JVD Respiratory: no wheezing, no rales Cardiovascular: RRR, no significant murmur Gastrointestinal: soft, non-tender Musculoskeletal: no edema, pulses present withdraws to pain Lymphatic: no nodes Skin: no rash, normal turgor Dx/Plan (1) Acute hypercapnic respiratory failure Code(s): J96.02 - ACUTE RESPIRATORY FAILURE WITH HYPERCAPNIA Status: Acute (2) Pulmonary hypertension Code(s): I27.20 - PULMONARY HYPERTENSION, UNSPECIFIED Status: Chronic (3) CKD (chronic kidney disease) stage 2, GFR 60-89 ml/min Code(s): N18.2 - CHRONIC KIDNEY DISEASE, STAGE 2 (MILD) Status: Acute (4) Paroxysmal supraventricular tachycardia Code(s): I47.1 - SUPRAVENTRICULAR TACHYCARDIA Status: Acute (5) Tobacco dependence Code(s): F17.200 - NICOTINE DEPENDENCE, UNSPECIFIED, UNCOMPLICATED Status: Chronic - Plan * continue with current plan of care * repeat BMP and CBC in AM * BP stable * oxygenating well * case and plan d/w patient's family at length, they understand and agree with this plan
--- NOTE | 2017-06-30 12:37 | PRG ---
DATE OF SERVICE: 06/30/2017 SUBJECTIVE: She is somewhat encephalopathic, but she is arousable. She passed the swallow test. OBJECTIVE: VITAL SIGNS: Blood pressure 105/60, pulse 82 and respirations 18. CHEST: Decreased breath sounds. No wheezing. CARDIAC: Normal S1 and S2. No gallops. ABDOMEN: Soft. No masses. LABORATORY DATA: White count 7000, hemoglobin and hematocrit 15 and 41. Electrolytes are normal. Urine is E. coli. IMPRESSION: 1. Status post subarachnoid hemorrhage. 2. Encephalopathy. 3. Electrolyte imbalance. PLAN: Continue neb treatments. Antibiotics while sedation. We will follow.
[2017-07-01] MEDS: Piperacillin/Tazobactam 2.25 GM in Sodium Chloride 0.9% 100 ML IVPB SCH ×3 (01:59→18:14)
[2017-07-01] MEDS: Sodium Chloride 0.9% 1,000 ML IV SCH ×2 (05:34→16:49)
--- NOTE | 2017-07-01 09:59 | PDOC.PN ---
- Subjective Encounter Start Date: 07/01/17 Encounter Start Time: 07:00 Pt seen for followup re: acute respiratory failure. Sleepy but arousable, not answering questions, unable to complete ROS. - Objective MAR Reviewed: Yes Vital Signs & Weight: Vital Signs (12 hours) Temp Pulse Resp BP BP Pulse Ox 07/01/17 08:00 97.5 F L 98 18 94/61 94 L 07/01/17 06:24 97 16 96 07/01/17 03:23 97.5 F L 100 20 118/64 92 L 07/01/17 00:54 97 18 92 L 06/30/17 23:04 98.4 F 98 16 146/76 H 91 L Weight Weight 124 lb 12.8 oz Most Recent Monitor Data Heart Rate from ECG 101 NIBP 99/64 NIBP BP-Mean 74 Respiration from ECG 25 SpO2 90 I&O: 06/30/17 07/01/17 07/02/17 06:59 06:59 06:59 Intake Total 2856 3247 Output Total 1715 945 Balance 1141 2302 Result Diagrams: 06/30/17 04:15 06/30/17 04:15 EKG Reviewed by me: Yes (Tele: NSR) Phys Exam - Physical Examination Constitutional: NAD HEENT: moist MMs Neck: supple Respiratory: clear to auscultation bilateral Cardiovascular: RRR Gastrointestinal: soft Neurological: moves all 4 limbs Psychiatric: normal affect Dx/Plan (1) Acute hypercapnic respiratory failure Code(s): J96.02 - ACUTE RESPIRATORY FAILURE WITH HYPERCAPNIA Status: Acute (2) Intracranial bleed Code(s): I62.9 - NONTRAUMATIC INTRACRANIAL HEMORRHAGE, UNSPECIFIED Status: Acute (3) Abnormal LFTs Code(s): R79.89 - OTHER SPECIFIED ABNORMAL FINDINGS OF BLOOD CHEMISTRY Status : Acute (4) Tobacco dependence Code(s): F17.200 - NICOTINE DEPENDENCE, UNSPECIFIED, UNCOMPLICATED Status: Chronic (5) Pulmonary hypertension Code(s): I27.20 - PULMONARY HYPERTENSION, UNSPECIFIED Status: Chronic (6) KWASI (acute kidney injury) Code(s): N17.9 - ACUTE KIDNEY FAILURE, UNSPECIFIED Status: Resolved - Plan continue antibiotics, PT/OT, out of bed/ambulate * . Ambulate patient. Continue antibiotics, steroids, bronchodilators. Review of Systems - Medications/Allergies Allergies/Adverse Reactions: Allergies Allergy/AdvReac Type Severity Reaction Status Date / Time estrogens, conjugated Allergy Verified 11/18/14 17:33 [From Premarin] procaine HCl [From Novocain] Allergy Verified 11/18/14 17:33 figs Allergy Uncoded 07/21/15 20:06 fragrance Allergy Uncoded 07/21/15 20:06 tide Allergy Uncoded 07/21/15 20:06 Medications: Current Medications Acetaminophen (Tylenol) 650 mg [place] Q4H PRN PRN Reason: Headache/Fever or Pain Acetaminophen (Tylenol) 650 mg PO Q4H PRN PRN Reason: Headache/Fever or Pain Albuterol/Ipratropium (Duoneb) 3 ml NEB [id number] [facility] Last Admin: 07/01/17 06:24 Dose: 3 ml Albuterol/Ipratropium (Duoneb) 3 ml NEB Q6H PRN PRN Reason: SOB &/or Wheezing Bisacodyl (Dulcolax) 10 mg SC Q24H PRN PRN Reason: Constipation Bisacodyl (Dulcolax) 10 mg PO DAILYPRN PRN PRN Reason: Constipation Sodium Chloride (Normal Saline 0.9%) 1,000 mls @ 100 mls/hr IV .Q10H [facility] Last Admin: 07/01/17 05:34 Dose: 1,000 mls Piperacillin Sod/Tazobactam (Sod 2.25 gm/ Sodium Chloride) 100 mls @ 200 mls/ hr IVPB 0200,1000,1800 [facility] Last Admin: 07/01/17 01:59 Dose: 100 mls Levofloxacin (Levaquin) 500 mg PO 0600 [facility] Stop: 07/09/17 06:01 Miscellaneous Medication (Pharmacy To Dose) 1 each IVPB PRN PRN PRN Reason: RENAL Pharmacy to dose Ondansetron HCl (Zofran) 4 mg IVP Q6H PRN PRN Reason: Nausea/Vomiting Prednisone (Prednisone) 20 mg PO QAM-[facility] Sodium Chloride (Flush - Normal Saline) 10 ml IVF Q12HR [facility] Last Admin: 06/30/17 21:28 Dose: 10 ml Sodium Chloride (Flush - Normal Saline) 10 ml IVF PRN PRN PRN Reason: Saline Flush
--- NOTE | 2017-07-01 10:15 | PRG ---
DATE OF SERVICE: 07/01/2017 SUBJECTIVE: This morning, she is encephalopathic, but arousable. Apparently, she ate breakfast without any issues. She is sitting at the bedside. OBJECTIVE: VITAL SIGNS: Reveal a temperature was 97, blood pressure 94/61, pulse 98, respirations 18, sats 94. CHEST: No wheezing. CARDIAC: Normal S1, S2. No gallops. ABDOMEN: Soft, no masses. IMPRESSION: 1. Subarachnoid hemorrhage. 2. Underlying chronic obstructive pulmonary disease. 3. Tobacco abuse. 4. Encephalopathy. PLAN: At this stage, nothing additional to offer. We will continue supportive care. PT and nutriti on. Eventually placement. We will follow.
--- NOTE | 2017-07-01 11:02 | PDOC.EVN ---
Event Note - Event Note Event Note: Pt seen for Code Green. Became tachypneic, tachycardic, hypoxic. Tele monitor shows Sinus tachycardia vs. a. flutter with 2:1 conduction. Pt is on 100% non rebreather mask now. S1, S2, tachy, reg. Lungs CTA. EKG, CXR, blood work pending. Dr Damico's office notified. Pt to be transfered to CCU.
[2017-07-01] MEDS ORDERED: KETAMINE HCL 10 MG/ML FS SCH (11:15)
[2017-07-01] MEDS ORDERED: Norepinephrine 8 MG/250 ML BAG IVPB PRN (11:24)
[2017-07-01 11:28] LABS: Troponin I 0.161 ng/mL (< 0.028)
[2017-07-01] MEDS ORDERED: Sodium Chloride 0.9% 1,000 ML IV SCH (11:30)
--- NOTE | 2017-07-01 11:55 | RAD ---
CHEST 1 VIEW: Date: 07/01/17 HISTORY: Acute dyspnea. COMPARISON: Chest 1 view dated 06/27/17. FINDINGS: Defibrillator pad noted over left hemithorax. Calcified breast implants. Central venous catheter with tip at inferior SVC. Patient has been extubated from the comparison examination. There are wires of uncertain etiology ove r the lower chest wall. Heart size is enlarged. There is right basilar air space opacity with small right effusion. IMPRESSION: New right basilar air space opacity with small effusion, which could be consistent with infection. POS: [facility]
[2017-07-01] MEDS ORDERED: Propofol 1,000 MG/100 ML VIAL IV ONE (11:57)
--- NOTE | 2017-07-01 12:19 | PRG ---
DATE OF SERVICE: 07/01/2017 SUBJECTIVE: Ms. Mejia was transferred back to the intensive care unit. She was intubated by the emergency physician. She was evaluated after intubation. She had been given ketamine and paralytic. OBJECTIVE: VITAL SIGNS: Her pressure is in the 60s, ordered 3 liters of saline to be infused via pressure bags. She is in sinus rhythm. LUNGS: Remarkable for distant breath sounds. HEART: Regular rhythm. ABDOMEN: Soft. EXTREMITIES: Without asymmetry. LABORATORY DATA: PH 7.1 on the blood gas. This has not been entered in the computer yet. Her CO2 was 92 as I recall; no other additional lab. Chest radiograph, which was done, I will review this. IMPRESSION: 1. Respiratory failure secondary to advanced obstructive lung disease on top of all other medical problems. 2. Subarachnoid bleed. 3. Ongoing tobacco use. 4. Encephalopathy secondary to hypercarbia. Critical care time 35 min. MTDD
[2017-07-01 12:30] LABS: Actual Bicarbonate (HCO3a) 25.3 mEq/L (22-26); Base Excess (BEa) -4.5 mEq/L (0 (+/-) 2.5); CO2 Tension 67.1 mmHg (35.0-45.0); Hemoglobin (Hb) 16.3 g/dL (12.0-16.0); O2 Tension (PaO2) 65.4 mmHg (80.0-100.0)
[2017-07-01 12:31] LABS: ALV-art Gradient 135.925 (0-20); Calcium, Ionized 1.3 mmol/L (1.12-1.30); Puncture Site RRA
[2017-07-01 13:08] LABS: CO2 Tension 92.6 mmHg (35.0-45.0)
[2017-07-01 13:09] LABS: Actual Bicarbonate (HCO3a) 28.2 mEq/L (22-26); Base Excess (BEa) -4.7 mEq/L (0 (+/-) 2.5); Calcium, Ionized 1.4 mmol/L (1.12-1.30); Hemoglobin (Hb) 17.1 g/dL (12.0-16.0); O2 Tension (PaO2) 92.8 mmHg (80.0-100.0); Puncture Site RRA
--- NOTE | 2017-07-01 13:56 | RAD ---
CHEST 1 VIEW: HISTORY: Intubation. COMPARISON: Chest 1 view same day. FINDINGS: The patient is intubated, endotracheal tube tip craniad to the yusra 4.7 cm. Central venous cathete r tip is in the cavoatrial junction. Small effusions. Bibasilar airspace opacities are present. There is a density projecting over the left upper lobe that may reflect focal edema. Defibrillator pad projects over the left chest. Calcified breast implants. IMPRESSION: Endotracheal tube tip in good position 4.7 cm craniad to the yusra. POS: DULCE MARIA
[2017-07-01] MEDS ORDERED: Propofol 1,000 MG/100 ML VIAL IV PRN (17:41)
[2017-07-01] MEDS ORDERED: Morphine 2 MG/ML SYRINGE SLOW IVP PRN (17:41)
[2017-07-01] MEDS ORDERED: DISCONTINUE PREVIOUS NARCOTIC PAIN MEDICATIONS AND BENZODIAZEPINES FS SCH (17:41)
[2017-07-01] MEDS ORDERED: Lorazepam 2 MG/ML VIAL SLOW IVP PRN (17:41)
--- NOTE | 2017-07-01 17:53 | EKG ---
Test Reason : CODE GREEN Blood Pressure : / mmHG Vent. Rate : 135 BPM Atrial Rate : 135 BPM P-R Int : 112 ms QRS Dur : 082 ms QT Int : 288 ms P-R-T Axes : 086 093 -65 degrees QTc Int : 432 ms Sinus tachycardia Rightward axis RSR' or QR pattern in V1 suggests right ventricular conduction delay Septal infarct (cited on or before 27-JUN-2017) T wave abnormality, consider inferior ischemia T wave abnormality, consider anterior ischemia Abnormal ECG When compared with ECG of 28-JUN-2017 00:49, (Unconfirmed) Vent. rate has increased BY 48 BPM RSR' pattern in V1 is now Present Questionable change in initial forces of Septal leads Confirmed by JANET ESPINOZA, DR. Arteaga ([id number]) on 07/01/2017 5:53:29 PM Referred By: CHRISTA Confirmed By:DR. Chandler GONZALES MD
[2017-07-02] MEDS: Sodium Chloride 0.9% 1,000 ML IV SCH ×3 (00:01→20:36)
[2017-07-02] MEDS: Piperacillin/Tazobactam 2.25 GM in Sodium Chloride 0.9% 100 ML IVPB SCH (02:10)
[2017-07-02] MEDS ORDERED: predniSONE 20 MG TAB PO SCH (08:00)
[2017-07-02] MEDS ORDERED: DC Sedation Protocol FS ONE (09:02)
[2017-07-02] MEDS ORDERED: Propofol 1,000 MG/100 ML VIAL IV ONE (10:17)
[2017-07-02 10:26] LABS: Base Excess (BEa) -0.7 mEq/L (0 (+/-) 2.5); CO2 Tension 39.5 mmHg (35.0-45.0); Calcium, Ionized 1.3 mmol/L (1.12-1.30); Hemoglobin (Hb) 12.4 g/dL (12.0-16.0); O2 Tension (PaO2) 116.5 mmHg (80.0-100.0); Puncture Site LRA
[2017-07-02 10:27] LABS: ALV-art Gradient 119.325 (0-20)
[2017-07-02] MEDS ORDERED: Sedation Protocol FS ONE (10:30)
[2017-07-02] MEDS ORDERED: fentaNYL Citrate/PF 2,000 MCG in Sodium Chloride 0.9% 60 ML IV SCH (10:33)
[2017-07-02] MEDS ORDERED: Propofol 1,000 MG/100 ML VIAL IV PRN (10:33)
[2017-07-02] MEDS ORDERED: Lorazepam 2 MG/ML VIAL SLOW IVP PRN (10:33)
[2017-07-02] MEDS ORDERED: Morphine 2 MG/ML SYRINGE SLOW IVP PRN (10:33)
[2017-07-02 12:08] LABS: Actual Bicarbonate (HCO3a) 23.5 mEq/L (22-26); Base Excess (BEa) -3.1 mEq/L (0 (+/-) 2.5); CO2 Tension 47.9 mmHg (35.0-45.0); Hemoglobin (Hb) 14.7 g/dL (12.0-16.0); O2 Tension (PaO2) 89.3 mmHg (80.0-100.0); pH, Arterial 7.31 (7.35-7.45)
[2017-07-02 12:09] LABS: ALV-art Gradient 136.025 (0-20); Calcium, Ionized 1.3 mmol/L (1.12-1.30); Puncture Site LRA
--- NOTE | 2017-07-02 12:51 | PRG ---
DATE OF SERVICE: 07/02/2017 SUBJECTIVE: Lee Ann Mejia was intubated yesterday for progressive respiratory failure. OBJECTIVE: GENERAL: This morning, she is awake and responsive, on the vent. She appears pretty appropriate. VITAL SIGNS: Pulse 96, blood pressure 110/70, sats 100 %, respirations 15. Sedation withheld. His I's and O's have been 4135 and 125 out. CHEST: Chest reveals decreased breath sounds, no wheezing. CARDIAC: Normal S1, S2. No gallops. IMPRESSION: 1. Acute on chronic respiratory failure with marked CO2 retention. 2. Subarachnoid hemorrhage. PLAN: Hold sedation. Will consider weaning and extubation in the next 24-48 hours. One-half hour critical care time.
--- NOTE | 2017-07-02 13:15 | PDOC.PN ---
- Subjective Encounter Start Date: 07/02/17 Encounter Start Time: 11:00 -: non-verbal Pt seen for followup re: acute respiratory failure. Was reintubated yesterday, unable to obtain ROS. - Objective MAR Reviewed: Yes Vital Signs & Weight: Vital Signs (12 hours) Temp Pulse Resp BP Pulse Ox 07/02/17 12:00 99.3 F 33 H 97 07/02/17 11:09 103 H 105/57 L 07/02/17 10:57 96 15 94 L 07/02/17 10:00 24 H 07/02/17 08:00 98.8 F 32 H 07/02/17 07:21 98.8 F 97 29 H 100 07/02/17 06:31 71 129/80 07/02/17 06:29 70 17 99 07/02/17 06:00 17 07/02/17 04:20 64 114/68 07/02/17 04:00 98.4 F 17 07/02/17 02:00 19 Weight Admit Weight 114 lb 13.773 oz Weight 153 lb 10.595 oz Most Recent Monitor Data Heart Rate from ECG 101 NIBP 117/66 NIBP BP-Mean 90 Respiration from ECG 26 SpO2 97 I&O: 07/01/17 07/02/17 07/03/17 06:59 06:59 06:59 Intake Total 3247 4135.9 13.1 Output Total 945 1255 256 Balance 2302 2880.9 -242.9 Result Diagrams: 06/30/17 04:15 06/30/17 04:15 EKG Reviewed by me: Yes (Tele: NSR) Phys Exam - Physical Examination Intubated ETT+ Respiratory: wheezing present Cardiovascular: RRR Gastrointestinal: soft Neurological: moves all 4 limbs Skin: no rash Dx/Plan (1) Acute hypercapnic respiratory failure Code(s): J96.02 - ACUTE RESPIRATORY FAILURE WITH HYPERCAPNIA Status: Acute (2) Intracranial bleed Code(s): I62.9 - NONTRAUMATIC INTRACRANIAL HEMORRHAGE, UNSPECIFIED Status: Acute (3) Abnormal LFTs Code(s): R79.89 - OTHER SPECIFIED ABNORMAL FINDINGS OF BLOOD CHEMISTRY Status : Acute (4) Tobacco dependence Code(s): F17.200 - NICOTINE DEPENDENCE, UNSPECIFIED, UNCOMPLICATED Status: Chronic (5) Pulmonary hypertension Code(s): I27.20 - PULMONARY HYPERTENSION, UNSPECIFIED Status: Chronic (6) KWASI (acute kidney injury) Code(s): N17.9 - ACUTE KIDNEY FAILURE, UNSPECIFIED Status: Resolved - Plan continue antibiotics, DVT proph w/SCDs * . Continue levofloxacin. Continue bronchodilators. May need CT head with and without contrast to evaluate the area of calcification , will obtain when pt is mpore stable. Review of Systems - Medications/Allergies Allergies/Adverse Reactions: Allergies Allergy/AdvReac Type Severity Reaction Status Date / Time estrogens, conjugated Allergy Verified 11/18/14 17:33 [From Premarin] procaine HCl [From Novocain] Allergy Verified 11/18/14 17:33 figs Allergy Uncoded 07/21/15 20:06 fragrance Allergy Uncoded 07/21/15 20:06 tide Allergy Uncoded 07/21/15 20:06 Medications: Current Medications Acetaminophen (Tylenol) 650 mg WI Q4H PRN PRN Reason: Headache/Fever or Pain Acetaminophen (Tylenol) 650 mg PO Q4H PRN PRN Reason: Headache/Fever or Pain Albuterol/Ipratropium (Duoneb) 3 ml NEB Q6H PRN PRN Reason: SOB &/or Wheezing Albuterol/Ipratropium (Duoneb) 3 ml NEB [id number] [facility] Last Admin: 07/02/17 10:57 Dose: 3 ml Bisacodyl (Dulcolax) 10 mg WI Q24H PRN PRN Reason: Constipation Bisacodyl (Dulcolax) 10 mg PO DAILYPRN PRN PRN Reason: Constipation Sodium Chloride (Normal Saline 0.9%) 1,000 mls @ 100 mls/hr IV .Q10H [facility] Last Admin: 07/02/17 00:01 Dose: 1,000 mls Norepinephrine Bitartrate (Levophed) 250 mls @ 0 mls/hr IVPB INF PRN; Protocol ; Titrate PRN Reason: Blood Pressure Sodium Chloride (Normal Saline 0.9%) 1,000 mls @ 0 mls/hr IV .Q0M [facility] PRN Reason: As Directed Fentanyl Citrate 2,000 mcg/ (Sodium Chloride) 100 mls @ 0 mls/hr IV INF JYOTI; Per Protocol PRN Reason: Protocol Stop: 08/01/17 10:33 Fentanyl Citrate (Fentanyl Bolus) 250 mls @ 0 mls/hr IVPB PRN PRN; As Directed PRN Reason: Breakthrough pain Stop: 08/01/17 10:33 Levofloxacin (Levaquin) 500 mg PO 0600 [facility] Stop: 07/09/17 06:01 Last Admin: 07/02/17 05:33 Dose: 500 mg Lorazepam (Ativan) 2 mg SLOW IVP Q2H PRN PRN Reason: Anxiety to achieve [place] 2-3 Stop: 08/01/17 10:33 Methylprednisolone Sodium Succinate (Solu-Medrol) 20 mg IVP Q6HR [facility] Last Admin: 07/02/17 12:24 Dose: 20 mg Miscellaneous Medication (Pharmacy To Dose) 1 each IVPB PRN PRN PRN Reason: RENAL Pharmacy to dose Morphine Sulfate (Morphine) 2 mg SLOW IVP Q2H PRN PRN Reason: Breakthrough pain Stop: 08/01/17 10:33 Ondansetron HCl (Zofran) 4 mg IVP Q6H PRN PRN Reason: Nausea/Vomiting Propofol (Diprivan) 1,000 mg IV INF PRN; Protocol PRN Reason: TO ACHIEVE TAFOYA SCORE 2-3 Stop: 08/01/17 10:33 Sodium Chloride (Flush - Normal Saline) 10 ml IVF Q12HR [facility] Last Admin: 07/02/17 09:32 Dose: 10 ml Sodium Chloride (Flush - Normal Saline) 10 ml IVF PRN PRN PRN Reason: Saline Flush
[2017-07-03] MEDS: Sodium Chloride 0.9% 1,000 ML IV SCH ×2 (05:21→15:43)
[2017-07-03 05:31] LABS: #Lymphocytes 0.6 thou/uL (1.20-3.40); #Monocytes 0.4 thou/uL (0.11-0.59); #Neutrophils 6.9 thou/uL (1.40-6.50); %Basophils 0.1 % (0.0-1.0); %Eosinophils 0.1 % (0.0-10.0); %Lymphocytes 7.7 % (21.0-51.0); %Neutrophils 87.1 % (42.0-75.0); Hemoglobin 15.6 g/dL (12.0-16.0); Mean Corpuscular HGB CONC 33.1 g/dL (32.0-36.0); Mean Corpuscular Hemoglobin 36.4 pg (27.0-31.0); Mean Platelet Volume 7.3 fL (7.4-10.4); Platelet Count 123 thou/uL (130-400); RBC Distribution Width 15.7 % (11.5-14.5); Red Blood Cell (RBC) Count 4.29 mill/uL (4.20-5.40); White Blood Cell (WBC) Count 7.9 thou/uL (4.8-10.8)
[2017-07-03 06:31] LABS: ALT (SGPT) 201 U/L (8-55); AST (SGOT) 44 U/L (5-34); Albumin 3.2 g/dL (3.4-4.8); Alkaline Phosphatase 36 U/L (40-150); Anion Gap 13 mmol/L (10-20); BUN (Urea Nitrogen) 26 mg/dL (9.8-20.1); Bilirubin, Total 1.1 mg/dL (0.2-1.2); Calc. Creatinine Clearance 97 mL/min (70-130); Calcium 8.8 mg/dL (7.8-10.44); Carbon Dioxide 25 mmol/L (23-31); Chloride 113 mmol/L (98-107); Estimated GFR-MDRD Greater than 90; Glucose 109 mg/dL (80-115); Potassium 4.4 mmol/L (3.5-5.1); Protein, Total 5.2 g/dL (6.0-8.3); Sodium 147 mmol/L (136-145)
[2017-07-03 08:06] LABS: Actual Bicarbonate (HCO3a) 24.4 mEq/L (22-26); Base Excess (BEa) -2.1 mEq/L (0 (+/-) 2.5); CO2 Tension 48.6 mmHg (35.0-45.0); Hemoglobin (Hb) 15.9 g/dL (12.0-16.0); pH, Arterial 7.33 (7.35-7.45)
[2017-07-03 08:07] LABS: Calcium, Ionized 1.4 mmol/L (1.12-1.30); Puncture Site LRA
[2017-07-03] MEDS ORDERED: Furosemide 20 MG/2 ML VIAL SLOW IVP SCH ×2 (10:00→15:45)
--- NOTE | 2017-07-03 10:07 | PRG ---
DATE OF SERVICE: 07/03/2017 Lee Ann Mejia was intubated on the vent, still remains still encephalopathic. PHYSICAL EXAMINATION: VITAL SIGNS: Blood pressure 129/77, sats 98%, respirations 18. I's and O's are 4358 in, 125 out. CHEST: Chest revealed decreased breath sounds, no wheezing. CARDIAC: Normal S1, S2, no gallops. ABDOMEN: Soft. LABORATORY: White count 7000, H&H 8 and 49, platelet count 123, pO2 93, pCO2 42.73, rate of 10. Electrolytes are normal. IMPRESSION: 1. End-stage chronic obstructive pulmonary disease. 2. Marked respiratory acidosis. 3. Subarachnoid hemorrhage. PLAN: Aggressive neb treatments, steroids, supportive care. May consider weaning and extubation today. One-half hour critical care time.
--- NOTE | 2017-07-03 10:08 | RAD ---
SINGLE VIEW OF THE CHEST: Comparison: 07-01-17 History: Ventilated patient with respiratory failure. FINDINGS: Single view of the chest shows an enlarged but stable cardiomediastinal silhouette. The lines and tub es are unchanged in position. Increased interstitial markings are present. There is no evidence of co nsolidation or mass. There is blunting at both costophrenic angles which may represent small pleural effusions. Patient has calcified bilateral breast implants. IMPRESSION: Stable small bilateral pleural effusions. POS: [facility]
[2017-07-03] MEDS ORDERED: DC Sedation Protocol FS ONE (10:44)
[2017-07-03] MEDS ORDERED: Furosemide 20 MG TAB PO SCH (14:00)
[2017-07-03 15:28] LABS: pH, Arterial 7.15 (7.35-7.45)
[2017-07-03 15:29] LABS: ALV-art Gradient 167.275 (0-20); Actual Bicarbonate (HCO3a) 27.5 mEq/L (22-26); Base Excess (BEa) -3.8 mEq/L (0 (+/-) 2.5); CO2 Tension 80.5 mmHg (35.0-45.0); Calcium, Ionized 1.4 mmol/L (1.12-1.30); Hemoglobin (Hb) 16.4 g/dL (12.0-16.0); O2 Tension (PaO2) 88.6 mmHg (80.0-100.0); Puncture Site LRA
--- NOTE | 2017-07-03 16:56 | PDOC.PN ---
- Subjective Encounter Start Date: 07/03/17 Encounter Start Time: 10:20 Pt seen for followup re: acute respiratory failure. Intubated, unable to obtain ROS. - Objective Resuscitation Status: Resuscitation Status DNR:Do Not Resuscitate MAR Reviewed: Yes Vital Signs & Weight: Vital Signs (12 hours) Temp Pulse Pulse Pulse Resp BP BP 07/03/17 16:00 97.9 F 07/03/17 15:56 120 H 07/03/17 14:34 127 H 125 H 107/63 07/03/17 14:22 122 H 34 H 07/03/17 12:00 98.0 F 07/03/17 09:52 114 H 31 H 07/03/17 08:45 126 H 26 H 07/03/17 08:00 97.4 F L 97 23 H 07/03/17 07:00 97.4 F L 07/03/17 06:45 73 125/77 07/03/17 06:42 75 11 L 07/03/17 06:00 15 BP Pulse Ox Pulse Ox Pulse Ox 07/03/17 16:00 93 L 07/03/17 15:56 07/03/17 14:34 111/67 94 L 94 L 07/03/17 14:22 93 L 07/03/17 12:00 92 L 07/03/17 09:52 91 L 07/03/17 08:45 92 L 07/03/17 08:00 99 07/03/17 07:00 07/03/17 06:45 07/03/17 06:42 99 07/03/17 06:00 Weight Admit Weight 114 lb 13.773 oz Weight 153 lb 0.013 oz Most Recent Monitor Data Heart Rate from ECG 127 NIBP 102/62 NIBP BP-Mean 73 Respiration from ECG 37 SpO2 92 I&O: 07/02/17 07/03/17 07/04/17 06:59 06:59 06:59 Intake Total 4135.9 2474.1 Output Total 1255 1334 595 Balance 2880.9 1140.1 -595 Result Diagrams: 07/03/17 04:55 07/03/17 04:55 EKG Reviewed by me: Yes (Tele: NSR) Phys Exam - Physical Examination Intubated ETT+ Respiratory: clear to auscultation bilateral Cardiovascular: RRR Gastrointestinal: soft Neurological: moves all 4 limbs Skin: no rash Dx/Plan (1) Acute hypercapnic respiratory failure Code(s): J96.02 - ACUTE RESPIRATORY FAILURE WITH HYPERCAPNIA Status: Acute (2) E. coli UTI Code(s): N39.0 - URINARY TRACT INFECTION, SITE NOT SPECIFIED; B96.20 - UNSP ESCHERICHIA COLI THE CAUSE OF DISEASES CLASSD ELSWHR Status: Acute (3) Intracranial bleed Code(s): I62.9 - NONTRAUMATIC INTRACRANIAL HEMORRHAGE, UNSPECIFIED Status: Acute (4) Abnormal LFTs Code(s): R79.89 - OTHER SPECIFIED ABNORMAL FINDINGS OF BLOOD CHEMISTRY Status : Acute (5) Tobacco dependence Code(s): F17.200 - NICOTINE DEPENDENCE, UNSPECIFIED, UNCOMPLICATED Status: Chronic (6) Pulmonary hypertension Code(s): I27.20 - PULMONARY HYPERTENSION, UNSPECIFIED Status: Chronic (7) KWASI (acute kidney injury) Code(s): N17.9 - ACUTE KIDNEY FAILURE, UNSPECIFIED Status: Resolved - Plan continue antibiotics * . Continue antibiotics, bronchodilators. PCCM following. Check CT brain (+ and - contrast) when pt more stable. Review of Systems - Medications/Allergies Allergies/Adverse Reactions: Allergies Allergy/AdvReac Type Severity Reaction Status Date / Time estrogens, conjugated Allergy Verified 11/18/14 17:33 [From Premarin] procaine HCl [From Novocain] Allergy Verified 11/18/14 17:33 figs Allergy Uncoded 07/21/15 20:06 fragrance Allergy Uncoded 07/21/15 20:06 tide Allergy Uncoded 07/21/15 20:06 Medications: Current Medications Acetaminophen (Tylenol) 650 mg NE Q4H PRN PRN Reason: Headache/Fever or Pain Acetaminophen (Tylenol) 650 mg PO Q4H PRN PRN Reason: Headache/Fever or Pain Albuterol/Ipratropium (Duoneb) 3 ml NEB Q6H PRN PRN Reason: SOB &/or Wheezing Albuterol/Ipratropium (Duoneb) 3 ml NEB [id number] Last Admin: 07/03/17 14:22 Dose: 3 ml Bisacodyl (Dulcolax) 10 mg NE Q24H PRN PRN Reason: Constipation Bisacodyl (Dulcolax) 10 mg PO DAILYPRN PRN PRN Reason: Constipation Furosemide (Lasix) 20 mg SLOW IVP NOW [facility] Stop: 07/03/17 17:45 Last Admin: 07/03/17 15:43 Dose: 20 mg Furosemide (Lasix) 20 mg SLOW IVP 0900,1400 [facility] Norepinephrine Bitartrate (Levophed) 250 mls @ 0 mls/hr IVPB INF PRN; Protocol ; Titrate PRN Reason: Blood Pressure Sodium Chloride (Normal Saline 0.9%) 1,000 mls @ 50 mls/hr IV .Q20H [facility] Last Admin: 07/03/17 15:43 Dose: 1,000 mls Levofloxacin (Levaquin) 500 mg PO 0600 [facility] Stop: 07/09/17 06:01 Last Admin: 07/03/17 05:13 Dose: 500 mg Methylprednisolone Sodium Succinate (Solu-Medrol) 20 mg IVP Q6HR [facility] Last Admin: 07/03/17 12:11 Dose: 20 mg Miscellaneous Medication (Pharmacy To Dose) 1 each IVPB PRN PRN PRN Reason: RENAL Pharmacy to dose Mometasone Furoate/Formoterol Fumar (Dulera 200 Mcg/5 Mcg Inhaler) 2 puff INH BID-RT [facility] Ondansetron HCl (Zofran) 4 mg IVP Q6H PRN PRN Reason: Nausea/Vomiting Propofol (Diprivan) 1,000 mg IV INF PRN; Protocol PRN Reason: TO ACHIEVE TAFOYA SCORE 2-3 Stop: 08/01/17 10:33 Last Admin: 07/03/17 05:14 Dose: 1,000 mg Sodium Chloride (Flush - Normal Saline) 10 ml IVF Q12HR [facility] Last Admin: 07/03/17 12:12 Dose: 10 ml Sodium Chloride (Flush - Normal Saline) 10 ml IVF PRN PRN PRN Reason: Saline Flush Spironolactone (Aldactone) 25 mg PO QA-[facility]
[2017-07-03] MEDS: Mometasone/Formoterol 120 PUFF INHALER INH SCH (18:24)
--- NOTE | 2017-07-03 18:53 | PRG ---
DATE OF SERVICE: 07/03/2017 SUBJECTIVE: This morning, she was extubated. Gradually as the day progressed, she became sleepy and lethargic. Blood gases showed a pO2 of 80, pCO2 of 80, pH 7.14. Clearly showing severe respiratory acidosis with marked hypoventilation at 50% Ventimask. She was placed on noninvasive ventilation to which she improved. Her son is at the bedside. We had a lengthy talk with the son who states, 1. The patient has been in gradual decline for over a year. 2. Her level of activity is minimal at most. 3. She can barely walk 200 feet without getting markedly short of breath. 4. She has ongoing tobacco abuse. 5. Patient's wishes were not to be placed on the vent, not to be intubated in trach. Therefore, she has now been made a DNR. We will continue comfort measures.
[2017-07-04] MEDS ORDERED: Furosemide 40 MG/4 ML VIAL SLOW IVP SCH (03:15)
[2017-07-04 04:28] LABS: #Lymphocytes 0.5 thou/uL (1.20-3.40); #Monocytes 0.5 thou/uL (0.11-0.59); #Neutrophils 9.4 thou/uL (1.40-6.50); %Eosinophils 0.1 % (0.0-10.0); %Lymphocytes 4.9 % (21.0-51.0); %Monocytes 4.8 % (0.0-10.0); %Neutrophils 90.2 % (42.0-75.0); Hemoglobin 15.5 g/dL (12.0-16.0); Mean Corpuscular HGB CONC 30.3 g/dL (32.0-36.0); Mean Corpuscular Hemoglobin 33.5 pg (27.0-31.0); Mean Platelet Volume 7.5 fL (7.4-10.4); Platelet Count 143 thou/uL (130-400); RBC Distribution Width 15.9 % (11.5-14.5); Red Blood Cell (RBC) Count 4.62 mill/uL (4.20-5.40); White Blood Cell (WBC) Count 10.5 thou/uL (4.8-10.8)
[2017-07-04 04:54] LABS: ALT (SGPT) 175 U/L (8-55); AST (SGOT) 35 U/L (5-34); Albumin 3.6 g/dL (3.4-4.8); Alkaline Phosphatase 37 U/L (40-150); Anion Gap 12 mmol/L (10-20); BUN (Urea Nitrogen) 28 mg/dL (9.8-20.1); Calc. Creatinine Clearance 91 mL/min (70-130); Calcium 9.3 mg/dL (7.8-10.44); Carbon Dioxide 29 mmol/L (23-31); Chloride 113 mmol/L (98-107); Estimated GFR-MDRD Greater than 90; Glucose 109 mg/dL (80-115); Potassium 4.3 mmol/L (3.5-5.1); Protein, Total 5.6 g/dL (6.0-8.3); Sodium 150 mmol/L (136-145)
[2017-07-04] MEDS: Spironolactone 25 MG TAB PO SCH ×2 (08:34→12:38)
--- NOTE | 2017-07-04 08:44 | RAD ---
CHEST 1 VIEW: HISTORY: Dyspnea. Followup. COMPARISON: 07/03/17. FINDINGS: Cardiac silhouette is magnified and enlarged. Pulmonary vasculature is engorged. Patchy bibasilar i nfiltrates and pleural fluid have increased slightly. The patient is rotated rightward. Endotrachea l catheter and nasogastric tube are no longer visible. IMPRESSION: 1. Interval removal of the endotracheal catheter and nasogastric tube. 2. Interval increase in pulmonary vascular congestion and bilateral pleural fluid. POS: [facility]
[2017-07-04] MEDS ORDERED: Levofloxacin 500 mg/D5W 100 ml Premix Bag IVPB SCH (08:45)
--- NOTE | 2017-07-04 09:05 | PRG ---
DATE OF SERVICE: 07/04/2017 SUBJECTIVE: We made her DNR last night on talking to her patient's brother. Her x-ray today shows p ossibly small pleural effusion. She has got breast implants and difficult to assess. On BiLevel, estrada harley is doing very well. OBJECTIVE: VITAL SIGNS: Sats are 99, respirations 22, pulse 78, blood pressure 130/75. We will try discontinue to see how she does. I's and O's are 2474 in, 1334 out. CHEST: Bilateral crackles, without any wheezing. CARDIAC: Normal S1, S2. No gallops. ABDOMEN: Soft, no masses. LABORATORY DATA: White count 10,000, H&H is 15 and 51. Sodium 150. Electrolytes are normal. ALT is 175. IMPRESSION: 1. End-stage chronic obstructive pulmonary disease, marked respiratory acidosis. 2. Congestive heart failure. 3. Subarachnoid hemorrhage. 4. Markedly elevated BNP with the ejection fraction of only 60%. 5. Severe pulmonary hypertension. 6. Severe tricuspid regurgitation. 7. Continuous severely enlarged right ventricle cavity. PLAN: Continue supportive care. When stable, we will try more at the ICU. Once again, she is a DNR. PROGNOSIS: Poor considering her severe pulmonary hypertension, probably secondary to severe chronic obstructive pulmonary disease. One-half hour critical care time.
[2017-07-04] MEDS: Furosemide 20 MG/2 ML VIAL SLOW IVP SCH ×2 (09:26→15:09)
[2017-07-04] MEDS: Mometasone/Formoterol 120 PUFF INHALER INH SCH ×2 (10:35→18:35)
[2017-07-04] MEDS ORDERED: Sildenafil Citrate 20 MG TAB PO SCH (11:30)
[2017-07-04] MEDS: Sodium Chloride 0.9% 1,000 ML IV SCH (12:57)
--- NOTE | 2017-07-04 14:47 | PDOC.PN ---
- Subjective Encounter Start Date: 07/04/17 Encounter Start Time: 10:00 Pt seen for followup re: acute respiratory failure. Extubated yesterday. Now on BiPAP. Follows commands, but not answering questions, unable to complete ROS. - Objective Resuscitation Status: Resuscitation Status DNR:Do Not Resuscitate MAR Reviewed: Yes Vital Signs & Weight: Vital Signs (12 hours) Temp Pulse Pulse Pulse Resp BP BP 07/04/17 14:33 120 H 35 H 07/04/17 12:00 98.8 F 07/04/17 10:33 104 H 26 H 07/04/17 09:35 103 H 105 H 124/69 118/70 07/04/17 08:03 103 H 07/04/17 08:00 98.8 F 103 H 18 07/04/17 07:59 104 H 30 H 07/04/17 04:00 98.2 F Pulse Ox Pulse Ox Pulse Ox 07/04/17 14:33 92 L 07/04/17 12:00 07/04/17 10:33 94 L 07/04/17 09:35 96 93 L 07/04/17 08:03 07/04/17 08:00 98 07/04/17 07:59 92 L 07/04/17 04:00 Weight Admit Weight 114 lb 13.773 oz Weight 149 lb 14.629 oz Most Recent Monitor Data Heart Rate from ECG 124 NIBP 115/71 NIBP BP-Mean 86 Respiration from ECG 30 SpO2 91 I&O: 07/03/17 07/04/17 07/05/17 06:59 06:59 06:59 Intake Total 2474.1 990 Output Total 1334 2265 510 Balance 1140.1 -1275 -510 Result Diagrams: 07/04/17 03:28 07/04/17 03:28 EKG Reviewed by me: Yes (Tele: NSR) Phys Exam - Physical Examination Constitutional: NAD HEENT: moist MMs Neck: no nodes Christopher crackles Cardiovascular: RRR Gastrointestinal: soft Neurological: moves all 4 limbs Psychiatric: normal affect Dx/Plan (1) Acute hypercapnic respiratory failure Code(s): J96.02 - ACUTE RESPIRATORY FAILURE WITH HYPERCAPNIA Status: Acute (2) E. coli UTI Code(s): N39.0 - URINARY TRACT INFECTION, SITE NOT SPECIFIED; B96.20 - UNSP ESCHERICHIA COLI THE CAUSE OF DISEASES CLASSD ELSWHR Status: Acute (3) Intracranial bleed Code(s): I62.9 - NONTRAUMATIC INTRACRANIAL HEMORRHAGE, UNSPECIFIED Status: Acute (4) Abnormal LFTs Code(s): R79.89 - OTHER SPECIFIED ABNORMAL FINDINGS OF BLOOD CHEMISTRY Status : Acute (5) Tobacco dependence Code(s): F17.200 - NICOTINE DEPENDENCE, UNSPECIFIED, UNCOMPLICATED Status: Chronic (6) Pulmonary hypertension Code(s): I27.20 - PULMONARY HYPERTENSION, UNSPECIFIED Status: Chronic (7) KWASI (acute kidney injury) Code(s): N17.9 - ACUTE KIDNEY FAILURE, UNSPECIFIED Status: Resolved - Plan continue antibiotics, PT/OT * . Continue antibiotics as below. Continue bronchodilators, diuretics. Ambulate patient. Change in code status noted. LFTs improving. Review of Systems - Medications/Allergies Allergies/Adverse Reactions: Allergies Allergy/AdvReac Type Severity Reaction Status Date / Time estrogens, conjugated Allergy Verified 11/18/14 17:33 [From Premarin] procaine HCl [From Novocain] Allergy Verified 11/18/14 17:33 figs Allergy Uncoded 07/21/15 20:06 fragrance Allergy Uncoded 07/21/15 20:06 tide Allergy Uncoded 07/21/15 20:06 Medications: Current Medications Acetaminophen (Tylenol) 650 mg [place] Q4H PRN PRN Reason: Headache/Fever or Pain Acetaminophen (Tylenol) 650 mg PO Q4H PRN PRN Reason: Headache/Fever or Pain Albuterol/Ipratropium (Duoneb) 3 ml NEB Q6H PRN PRN Reason: SOB &/or Wheezing Albuterol/Ipratropium (Duoneb) 3 ml NEB [id number] [facility] Last Admin: 07/04/17 14:33 Dose: 3 ml Bisacodyl (Dulcolax) 10 mg NJ Q24H PRN PRN Reason: Constipation Bisacodyl (Dulcolax) 10 mg PO DAILYPRN PRN PRN Reason: Constipation Furosemide (Lasix) 20 mg SLOW IVP 0900,1400 [facility] Last Admin: 07/04/17 09:26 Dose: 20 mg Norepinephrine Bitartrate (Levophed) 250 mls @ 0 mls/hr IVPB INF PRN; Protocol ; Titrate PRN Reason: Blood Pressure Sodium Chloride (Normal Saline 0.9%) 1,000 mls @ 50 mls/hr IV .Q20H [facility] Last Admin: 07/04/17 12:57 Dose: 1,000 mls Levofloxacin (Levaquin) 500 mg IVPB 0600 [facility] Stop: 07/09/17 06:01 Methylprednisolone Sodium Succinate (Solu-Medrol) 20 mg IVP Q6HR [facility] Last Admin: 07/04/17 12:37 Dose: 20 mg Miscellaneous Medication (Pharmacy To Dose) 1 each IVPB PRN PRN PRN Reason: RENAL Pharmacy to dose Mometasone Furoate/Formoterol Fumar (Dulera 200 Mcg/5 Mcg Inhaler) 2 puff INH BID-RT [facility] Last Admin: 07/04/17 10:35 Dose: Not Given Ondansetron HCl (Zofran) 4 mg IVP Q6H PRN PRN Reason: Nausea/Vomiting Propofol (Diprivan) 1,000 mg IV INF PRN; Protocol PRN Reason: TO ACHIEVE TAFOYA SCORE 2-3 Stop: 08/01/17 10:33 Last Admin: 07/03/17 05:14 Dose: 1,000 mg Sildenafil Citrate (Revatio) 20 mg PO DAILY [facility] Sodium Chloride (Flush - Normal Saline) 10 ml IVF Q12HR [facility] Last Admin: 07/04/17 09:27 Dose: 10 ml Sodium Chloride (Flush - Normal Saline) 10 ml IVF PRN PRN PRN Reason: Saline Flush Spironolactone (Aldactone) 25 mg PO QAM-WM [facility] Last Admin: 07/04/17 12:38 Dose: 25 mg
[2017-07-05] MEDS: Levofloxacin 500 mg/D5W 100 ml Premix Bag IVPB SCH (05:22)
[2017-07-05] MEDS: Sodium Chloride 0.9% 1,000 ML IV SCH (05:23)
[2017-07-05 06:16] LABS: Anion Gap 12 mmol/L (10-20); BUN (Urea Nitrogen) 28 mg/dL (9.8-20.1); Calc. Creatinine Clearance 91 mL/min (70-130); Calcium 8.9 mg/dL (7.8-10.44); Carbon Dioxide 31 mmol/L (23-31); Chloride 109 mmol/L (98-107); Estimated GFR-MDRD Greater than 90; Glucose 138 mg/dL (80-115); Potassium 4.3 mmol/L (3.5-5.1); Sodium 148 mmol/L (136-145)
[2017-07-05 06:31] LABS: #Lymphocytes 0.2 thou/uL (1.20-3.40); #Monocytes 0.7 thou/uL (0.11-0.59); #Neutrophils 11.5 thou/uL (1.40-6.50); %Lymphocytes 1.7 % (21.0-51.0); %Monocytes 5.5 % (0.0-10.0); %Neutrophils 92.8 % (42.0-75.0); Hemoglobin 16.2 g/dL (12.0-16.0); MDiff Complete? YES; Macrocytosis SLIGHT = 6-15 cells (100X) (0-5/hpf); Mean Corpuscular HGB CONC 29.1 g/dL (32.0-36.0); Mean Corpuscular Hemoglobin 32.6 pg (27.0-31.0); Mean Platelet Volume 7.6 fL (7.4-10.4); Platelet Count 148 thou/uL (130-400); Red Blood Cell (RBC) Count 4.96 mill/uL (4.20-5.40); White Blood Cell (WBC) Count 12.4 thou/uL (4.8-10.8)
[2017-07-05] MEDS: Furosemide 20 MG/2 ML VIAL SLOW IVP SCH (08:03)
[2017-07-05] MEDS: Mometasone/Formoterol 120 PUFF INHALER INH SCH ×2 (08:04→18:56)
[2017-07-05] MEDS: Sildenafil Citrate 20 MG TAB PO SCH (08:04)
--- NOTE | 2017-07-05 08:09 | RAD ---
FRONTAL VIEW CHEST: Date: 07/05/17 COMPARISON: Previous day. INDICATION: Ventilated patient. FINDINGS: Right subclavian venous catheter remains with tip overlying the right atrium. There are bibasilar ple ural and parenchymal opacities. The cardiomediastinal silhouette and pulmonary vasculature are promin ent. Patient is rotated. IMPRESSION: Bilateral pleural effusions with adjacent atelectasis and/or pneumonia. POS: [facility]
--- NOTE | 2017-07-05 08:34 | PRG ---
DATE OF SERVICE: 07/05/2017 This morning she is lethargic, but arousable. She has been made a DNR as per her son's wishes yesterday. The patient has got severe pulmonary hypertension and probably from end-stage chronic obstructive pul monary disease. PHYSICAL EXAMINATION: VITAL SIGNS: Blood pressure is 90/80, sats 88-90 on 2 liters, pulse 112, temperature 98. I's and O' s are 1262 in, 890 out. CHEST: Chest revealed decreased breath sounds, no wheezing. CARDIAC: Normal S1-S2. No masses. IMPRESSION: 1. Severe pulmonary hypertension. 2. Right-sided failure. 3. Severe chronic obstructive pulmonary disease. 4. Tobacco abuse. She is a DNR. Continue neb treatments, supportive care. Consider getting Palliative Care input.
--- NOTE | 2017-07-05 13:50 | PDOC.PN ---
- Subjective Encounter Start Date: 07/05/17 Encounter Start Time: 08:00 Pt seen for followup re: acute respiratory failure. Answering questions, denies chest pain or fevers. - Objective Resuscitation Status: Resuscitation Status DNR:Do Not Resuscitate MAR Reviewed: Yes Vital Signs & Weight: Vital Signs (12 hours) Temp Pulse Pulse Pulse Resp BP BP 07/05/17 12:26 110 H 29 H 07/05/17 10:26 68 73 96/60 121/64 07/05/17 08:04 111 H 30 H 07/05/17 08:00 97.9 F 110 H 22 H 07/05/17 07:57 07/05/17 07:48 07/05/17 07:46 111 H 30 H 07/05/17 04:00 98.4 F Pulse Ox Pulse Ox Pulse Ox Pulse Ox 07/05/17 12:26 07/05/17 10:26 86 L 90 L 89 L 07/05/17 08:04 07/05/17 08:00 95 07/05/17 07:57 98 07/05/17 07:48 94 L 07/05/17 07:46 07/05/17 04:00 Weight Admit Weight 114 lb 13.773 oz Weight 148 lb 9.465 oz Most Recent Monitor Data Heart Rate from ECG 113 NIBP 122/45 NIBP BP-Mean 73 Respiration from ECG 21 SpO2 90 I&O: 07/04/17 07/05/17 07/06/17 06:59 06:59 06:59 Intake Total 990 1262 660 Output Total 1151 0380 900 Balance -1275 -628 -240 Result Diagrams: 07/05/17 05:24 07/05/17 05:24 EKG Reviewed by me: Yes (Tele: NSR) Phys Exam - Physical Examination Constitutional: NAD HEENT: moist MMs Neck: supple Respiratory: clear to auscultation bilateral Cardiovascular: RRR Gastrointestinal: soft Neurological: moves all 4 limbs Deviation from normal: Appears tired Dx/Plan (1) Acute hypercapnic respiratory failure Code(s): J96.02 - ACUTE RESPIRATORY FAILURE WITH HYPERCAPNIA Status: Acute (2) E. coli UTI Code(s): N39.0 - URINARY TRACT INFECTION, SITE NOT SPECIFIED; B96.20 - UNSP ESCHERICHIA COLI THE CAUSE OF DISEASES CLASSD ELSWHR Status: Acute (3) Intracranial bleed Code(s): I62.9 - NONTRAUMATIC INTRACRANIAL HEMORRHAGE, UNSPECIFIED Status: Acute (4) Abnormal LFTs Code(s): R79.89 - OTHER SPECIFIED ABNORMAL FINDINGS OF BLOOD CHEMISTRY Status : Acute (5) Tobacco dependence Code(s): F17.200 - NICOTINE DEPENDENCE, UNSPECIFIED, UNCOMPLICATED Status: Chronic (6) Pulmonary hypertension Code(s): I27.20 - PULMONARY HYPERTENSION, UNSPECIFIED Status: Chronic (7) KWASI (acute kidney injury) Code(s): N17.9 - ACUTE KIDNEY FAILURE, UNSPECIFIED Status: Resolved - Plan * . Continue antibiotics as below. Continue oxygen, steroids and bronchodilators. LFTs improving. Review of Systems - Review of Systems Respiratory: negative: Cough, Dry, Shortness of Breath, Hemoptysis, SOB with Excertion, Pleuritic Pain, Sputum, Wheezing Cardiovascular: negative: chest pain, palpitations, orthopnea, paroxysmal nocturnal dyspnea, edema, light headedness - Medications/Allergies Allergies/Adverse Reactions: Allergies Allergy/AdvReac Type Severity Reaction Status Date / Time estrogens, conjugated Allergy Verified 11/18/14 17:33 [From Premarin] procaine HCl [From Novocain] Allergy Verified 11/18/14 17:33 figs Allergy Uncoded 07/21/15 20:06 fragrance Allergy Uncoded 07/21/15 20:06 tide Allergy Uncoded 07/21/15 20:06 Medications: Current Medications Acetaminophen (Tylenol) 650 mg [place] Q4H PRN PRN Reason: Headache/Fever or Pain Acetaminophen (Tylenol) 650 mg PO Q4H PRN PRN Reason: Headache/Fever or Pain Albuterol/Ipratropium (Duoneb) 3 ml NEB Q6H PRN PRN Reason: SOB &/or Wheezing Albuterol/Ipratropium (Duoneb) 3 ml NEB [id number] Last Admin: 07/05/17 12:26 Dose: 3 ml Bisacodyl (Dulcolax) 10 mg [place] Q24H PRN PRN Reason: Constipation Bisacodyl (Dulcolax) 10 mg PO DAILYPRN PRN PRN Reason: Constipation Norepinephrine Bitartrate (Levophed) 250 mls @ 0 mls/hr IVPB INF PRN; Protocol ; Titrate PRN Reason: Blood Pressure Sodium Chloride (Normal Saline 0.9%) 1,000 mls @ 50 mls/hr IV .Q20H [facility] Last Admin: 07/05/17 05:23 Dose: 1,000 mls Levofloxacin (Levaquin) 500 mg IVPB 0600 [facility] Stop: 07/09/17 06:01 Last Admin: 07/05/17 05:22 Dose: 500 mg Methylprednisolone Sodium Succinate (Solu-Medrol) 20 mg IVP Q6HR [facility] Last Admin: 07/05/17 11:52 Dose: 20 mg Miscellaneous Medication (Pharmacy To Dose) 1 each IVPB PRN PRN PRN Reason: RENAL Pharmacy to dose Mometasone Furoate/Formoterol Fumar (Dulera 200 Mcg/5 Mcg Inhaler) 2 puff INH BID-RT [facility] Last Admin: 07/05/17 08:04 Dose: 2 puff Ondansetron HCl (Zofran) 4 mg IVP Q6H PRN PRN Reason: Nausea/Vomiting Propofol (Diprivan) 1,000 mg IV INF PRN; Protocol PRN Reason: TO ACHIEVE TAFOYA SCORE 2-3 Stop: 08/01/17 10:33 Last Admin: 07/03/17 05:14 Dose: 1,000 mg Sildenafil Citrate (Revatio) 20 mg PO DAILY [facility] Last Admin: 07/05/17 08:04 Dose: 20 mg Sodium Chloride (Flush - Normal Saline) 10 ml IVF Q12HR [facility] Last Admin: 07/05/17 08:04 Dose: 10 ml Sodium Chloride (Flush - Normal Saline) 10 ml IVF PRN PRN PRN Reason: Saline Flush Spironolactone (Aldactone) 25 mg PO QAM-WM [facility] Last Admin: 07/04/17 12:38 Dose: 25 mg
[2017-07-05 14:59] VITALS: BMI 26.3
[2017-07-05] MEDS: Acetaminophen 325 MG TAB PO PRN (21:13)
[2017-07-06] MEDS: Sodium Chloride 0.9% 1,000 ML IV SCH ×3 (01:43→21:47)
[2017-07-06 04:43] LABS: Anion Gap 13 mmol/L (10-20); BUN (Urea Nitrogen) 31 mg/dL (9.8-20.1); Calc. Creatinine Clearance 91 mL/min (70-130); Calcium 8.8 mg/dL (7.8-10.44); Carbon Dioxide 30 mmol/L (23-31); Chloride 107 mmol/L (98-107); Estimated GFR-MDRD Greater than 90; Glucose 132 mg/dL (80-115); Potassium 4.5 mmol/L (3.5-5.1); Sodium 145 mmol/L (136-145)
[2017-07-06] MEDS: Levofloxacin 500 mg/D5W 100 ml Premix Bag IVPB SCH (05:21)
[2017-07-06] MEDS: Acetaminophen 325 MG TAB PO PRN ×3 (06:16→20:06)
[2017-07-06] MEDS: Mometasone/Formoterol 120 PUFF INHALER INH SCH ×2 (06:19→19:03)
[2017-07-06] MEDS: Spironolactone 25 MG TAB PO SCH (08:47)
[2017-07-06] MEDS: Sildenafil Citrate 20 MG TAB PO SCH (09:13)
--- NOTE | 2017-07-06 17:53 | PDOC.PN ---
- Subjective Encounter Start Date: 07/06/17 Encounter Start Time: 08:40 Pt seen for followup re: acute respiratory failure. Confused. Unable to complete ROS. - Objective Resuscitation Status: Resuscitation Status DNR:Do Not Resuscitate MAR Reviewed: Yes Vital Signs & Weight: Vital Signs (12 hours) Temp Pulse Pulse Pulse Resp BP Pulse Ox 07/06/17 15:40 97.7 F 92 22 H 121/80 94 L 07/06/17 13:06 140 H 148 H 07/06/17 11:05 97.4 F L 111 H 18 148/89 H 84 L 07/06/17 08:00 97.8 F 18 L 22 H 95 07/06/17 07:00 97.8 F 101 H 18 127/83 95 Pulse Ox Pulse Ox 07/06/17 15:40 07/06/17 13:06 88 L 66 L 07/06/17 11:05 07/06/17 08:00 07/06/17 07:00 Weight Admit Weight 114 lb 13.773 oz Weight 149 lb 4.047 oz Most Recent Monitor Data Heart Rate from ECG 108 NIBP 114/63 NIBP BP-Mean 74 Respiration from ECG 23 SpO2 90 I&O: 07/05/17 07/06/17 07/07/17 06:59 06:59 06:59 Intake Total 1262 2014 Output Total 1890 1670 100 Balance -628 345 -100 Result Diagrams: 07/05/17 05:24 07/06/17 04:01 Phys Exam - Physical Examination Constitutional: NAD HEENT: moist MMs Neck: supple Respiratory: wheezing present Cardiovascular: RRR Gastrointestinal: soft Musculoskeletal: pulses present Neurological: moves all 4 limbs Psychiatric: normal affect Deviation from normal: Unable to assess orientation Skin: no rash Dx/Plan (1) Acute hypercapnic respiratory failure Code(s): J96.02 - ACUTE RESPIRATORY FAILURE WITH HYPERCAPNIA Status: Acute (2) E. coli UTI Code(s): N39.0 - URINARY TRACT INFECTION, SITE NOT SPECIFIED; B96.20 - UNSP ESCHERICHIA COLI THE CAUSE OF DISEASES CLASSD ELSWHR Status: Acute (3) Intracranial bleed Code(s): I62.9 - NONTRAUMATIC INTRACRANIAL HEMORRHAGE, UNSPECIFIED Status: Acute (4) Abnormal LFTs Code(s): R79.89 - OTHER SPECIFIED ABNORMAL FINDINGS OF BLOOD CHEMISTRY Status : Acute (5) Tobacco dependence Code(s): F17.200 - NICOTINE DEPENDENCE, UNSPECIFIED, UNCOMPLICATED Status: Chronic (6) Pulmonary hypertension Code(s): I27.20 - PULMONARY HYPERTENSION, UNSPECIFIED Status: Chronic (7) KWASI (acute kidney injury) Code(s): N17.9 - ACUTE KIDNEY FAILURE, UNSPECIFIED Status: Resolved - Plan continue antibiotics, out of bed/ambulate * . Continue levofloxacin. Continue steroids. Review of Systems - Medications/Allergies Allergies/Adverse Reactions: Allergies Allergy/AdvReac Type Severity Reaction Status Date / Time estrogens, conjugated Allergy Verified 11/18/14 17:33 [From Premarin] procaine HCl [From Novocain] Allergy Verified 11/18/14 17:33 figs Allergy Uncoded 07/21/15 20:06 fragrance Allergy Uncoded 07/21/15 20:06 tide Allergy Uncoded 07/21/15 20:06 Medications: Current Medications Acetaminophen (Tylenol) 650 mg [place] Q4H PRN PRN Reason: Headache/Fever or Pain Acetaminophen (Tylenol) 650 mg PO Q4H PRN PRN Reason: Headache/Fever or Pain Last Admin: 07/06/17 13:13 Dose: 650 mg Albuterol/Ipratropium (Duoneb) 3 ml NEB Q6H PRN PRN Reason: SOB &/or Wheezing Albuterol/Ipratropium (Duoneb) 3 ml NEB [id number] [facility] Last Admin: 07/06/17 15:14 Dose: Not Given Bisacodyl (Dulcolax) 10 mg [place] Q24H PRN PRN Reason: Constipation Bisacodyl (Dulcolax) 10 mg PO DAILYPRN PRN PRN Reason: Constipation Sodium Chloride (Normal Saline 0.9%) 1,000 mls @ 50 mls/hr IV .Q20H [facility] Last Admin: 07/06/17 01:43 Dose: 1,000 mls Levofloxacin (Levaquin) 500 mg PO 0600 [facility] Methylprednisolone Sodium Succinate (Solu-Medrol) 20 mg IVP Q8HR [facility] Miscellaneous Medication (Pharmacy To Dose) 1 each IVPB PRN PRN PRN Reason: RENAL Pharmacy to dose Mometasone Furoate/Formoterol Fumar (Dulera 200 Mcg/5 Mcg Inhaler) 2 puff INH BID-RT [facility] Last Admin: 07/06/17 06:19 Dose: Not Given Ondansetron HCl (Zofran) 4 mg IVP Q6H PRN PRN Reason: Nausea/Vomiting Propofol (Diprivan) 1,000 mg IV INF PRN; Protocol PRN Reason: TO ACHIEVE TAFOYA SCORE 2-3 Stop: 08/01/17 10:33 Last Admin: 07/03/17 05:14 Dose: 1,000 mg Sildenafil Citrate (Revatio) 20 mg PO DAILY [facility] Last Admin: 07/06/17 09:13 Dose: 20 mg Sodium Chloride (Flush - Normal Saline) 10 ml IVF Q12HR [facility] Last Admin: 07/06/17 07:56 Dose: Not Given Sodium Chloride (Flush - Normal Saline) 10 ml IVF PRN PRN PRN Reason: Saline Flush Spironolactone (Aldactone) 25 mg PO QAM-WM [facility] Last Admin: 07/06/17 08:47 Dose: 25 mg
--- NOTE | 2017-07-06 18:10 | PRG ---
DATE OF SERVICE: 07/06/2017 SUBJECTIVE: Ms. Mejia says she is feeling much better than she felt yesterday. OBJECTIVE: VITAL SIGNS: She is afebrile, heart rate is 90, respiratory rate 24, and oximetry is 94. LUNGS: Remarkable for distant breath sounds. CARDIOVASCULAR: Regular rhythm. ABDOMEN: Soft. Intake and output is positive 345. LABORATORY DATA: Sodium 145, potassium 4.5, chloride 107, bicarb 30, BUN 21, and creatinine 0.63. IMPRESSION: 1. Advanced chronic obstructive pulmonary disease with pulmonary hypertension. 2. [id number] STATUS. PLAN: Continue nebulizer treatments, antimicrobial therapy can be switched to p.o. antimicrobial the rapy, steroid dosing will be decreased.
[2017-07-07 05:40] LABS: Anion Gap 15 mmol/L (10-20); BUN (Urea Nitrogen) 34 mg/dL (9.8-20.1); Calc. Creatinine Clearance 93 mL/min (70-130); Calcium 9.2 mg/dL (7.8-10.44); Carbon Dioxide 26 mmol/L (23-31); Chloride 107 mmol/L (98-107); Estimated GFR-MDRD Greater than 90; Glucose 99 mg/dL (80-115); Potassium 4.8 mmol/L (3.5-5.1); Sodium 143 mmol/L (136-145)
[2017-07-07] MEDS: Mometasone/Formoterol 120 PUFF INHALER INH SCH ×2 (07:08→18:39)
[2017-07-07] MEDS: Spironolactone 25 MG TAB PO SCH (08:34)
[2017-07-07] MEDS: Acetaminophen 325 MG TAB PO PRN (08:35)
[2017-07-07] MEDS: Sildenafil Citrate 20 MG TAB PO SCH (08:35)
[2017-07-07] MEDS: Sodium Chloride 0.9% 1,000 ML IV SCH (14:51)
--- NOTE | 2017-07-07 17:03 | PDOC.PN ---
- Subjective Encounter Start Date: 07/07/17 Encounter Start Time: 08:40 Pt seen for followup re: acute respiratory failure. More alert today. Denies chest pain, shortness of breath, fevers or chills. - Objective Resuscitation Status: Resuscitation Status DNR:Do Not Resuscitate MAR Reviewed: Yes Vital Signs & Weight: Vital Signs (12 hours) Temp Pulse Resp BP Pulse Ox 07/07/17 08:00 97.2 F L 113 H 24 H 93 L 07/07/17 07:29 97.2 F L 113 H 24 H 145/96 H 93 L Weight Admit Weight 114 lb 13.773 oz Weight 150 lb Most Recent Monitor Data Heart Rate from ECG 108 NIBP 114/63 NIBP BP-Mean 74 Respiration from ECG 23 SpO2 90 I&O: 07/06/17 07/07/17 07/08/17 06:59 06:59 06:59 Intake Total 2014 Output Total 1670 500 Balance 345 -500 Result Diagrams: 07/05/17 05:24 07/07/17 04:42 Additional Labs: Accuchecks 07/07/17 04:34 POC Glucose 101 Phys Exam - Physical Examination Constitutional: NAD HEENT: moist MMs Neck: supple Respiratory: wheezing present Cardiovascular: RRR Gastrointestinal: soft Neurological: moves all 4 limbs Psychiatric: normal affect Skin: no rash Dx/Plan (1) Acute hypercapnic respiratory failure Code(s): J96.02 - ACUTE RESPIRATORY FAILURE WITH HYPERCAPNIA Status: Acute (2) E. coli UTI Code(s): N39.0 - URINARY TRACT INFECTION, SITE NOT SPECIFIED; B96.20 - UNSP ESCHERICHIA COLI THE CAUSE OF DISEASES CLASSD ELSWHR Status: Acute (3) Intracranial bleed Code(s): I62.9 - NONTRAUMATIC INTRACRANIAL HEMORRHAGE, UNSPECIFIED Status: Acute (4) Abnormal LFTs Code(s): R79.89 - OTHER SPECIFIED ABNORMAL FINDINGS OF BLOOD CHEMISTRY Status : Acute (5) Tobacco dependence Code(s): F17.200 - NICOTINE DEPENDENCE, UNSPECIFIED, UNCOMPLICATED Status: Chronic (6) Pulmonary hypertension Code(s): I27.20 - PULMONARY HYPERTENSION, UNSPECIFIED Status: Chronic (7) KWASI (acute kidney injury) Code(s): N17.9 - ACUTE KIDNEY FAILURE, UNSPECIFIED Status: Resolved - Plan PT/OT, out of bed/ambulate * . Pt clinically better today. Continue bronchodilators. Ambulate patient. Review of Systems - Review of Systems Cardiovascular: negative: chest pain, palpitations, orthopnea, paroxysmal nocturnal dyspnea, edema, light headedness Gastrointestinal: negative: Nausea, Vomiting, Abdominal Pain, Diarrhea, Constipation, Melena, Hematochezia - Medications/Allergies Allergies/Adverse Reactions: Allergies Allergy/AdvReac Type Severity Reaction Status Date / Time estrogens, conjugated Allergy Verified 11/18/14 17:33 [From Premarin] procaine HCl [From Novocain] Allergy Verified 11/18/14 17:33 figs Allergy Uncoded 07/21/15 20:06 fragrance Allergy Uncoded 07/21/15 20:06 tide Allergy Uncoded 07/21/15 20:06 Medications: Current Medications Acetaminophen (Tylenol) 650 mg [place] Q4H PRN PRN Reason: Headache/Fever or Pain Acetaminophen (Tylenol) 650 mg PO Q4H PRN PRN Reason: Headache/Fever or Pain Last Admin: 07/07/17 08:35 Dose: 650 mg Albuterol/Ipratropium (Duoneb) 3 ml NEB Q6H PRN PRN Reason: SOB &/or Wheezing Albuterol/Ipratropium (Duoneb) 3 ml NEB [id number] [facility] Last Admin: 07/07/17 13:09 Dose: Not Given Bisacodyl (Dulcolax) 10 mg [place] Q24H PRN PRN Reason: Constipation Bisacodyl (Dulcolax) 10 mg PO DAILYPRN PRN PRN Reason: Constipation Sodium Chloride (Normal Saline 0.9%) 1,000 mls @ 50 mls/hr IV .Q20H [facility] Last Admin: 07/07/17 14:51 Dose: 1,000 mls Levofloxacin (Levaquin) 500 mg PO 0600 [facility] Last Admin: 07/07/17 05:40 Dose: 500 mg Methylprednisolone Sodium Succinate (Solu-Medrol) 20 mg IVP Q8HR [facility] Last Admin: 07/07/17 14:49 Dose: 20 mg Miscellaneous Medication (Pharmacy To Dose) 1 each IVPB PRN PRN PRN Reason: RENAL Pharmacy to dose Mometasone Furoate/Formoterol Fumar (Dulera 200 Mcg/5 Mcg Inhaler) 2 puff INH BID-RT [facility] Last Admin: 07/07/17 07:08 Dose: Not Given Ondansetron HCl (Zofran) 4 mg IVP Q6H PRN PRN Reason: Nausea/Vomiting Propofol (Diprivan) 1,000 mg IV INF PRN; Protocol PRN Reason: TO ACHIEVE TAFOYA SCORE 2-3 Stop: 08/01/17 10:33 Last Admin: 07/03/17 05:14 Dose: 1,000 mg Sildenafil Citrate (Revatio) 20 mg PO DAILY [facility] Last Admin: 07/07/17 08:35 Dose: 20 mg Sodium Chloride (Flush - Normal Saline) 10 ml IVF Q12HR [facility] Last Admin: 07/07/17 08:34 Dose: 10 ml Sodium Chloride (Flush - Normal Saline) 10 ml IVF PRN PRN PRN Reason: Saline Flush Spironolactone (Aldactone) 25 mg PO QAM-WM [facility] Last Admin: 07/07/17 08:34 Dose: 25 mg
--- NOTE | 2017-07-07 22:21 | PRG ---
DATE OF SERVICE: 07/07/2017 SUBJECTIVE: Lee Ann Mejia says she is feeling better. She is in no distress. She is afebrile. She i s resting tachycardia which persistent. OBJECTIVE: VITAL SIGNS: Heart rate is 103 this morning, 113 this afternoon, respiratory rate in the 20s, oximet ry is 92 on 3 liters. LUNGS: Distant, without wheezes. She has slightly prolonged expiratory phase. CARDIOVASCULAR: Regular rhythm. ABDOMEN: Soft. LABORATORY DATA: Sodium 143, potassium 4.8, chloride 107, bicarbonate 26, BUN 34, creatinine 0.62. IMPRESSION: 1. Chronic obstructive pulmonary disease exacerbation. 2. DO NOT RESUSCITATE status. 3. Pulmonary hypertension secondary to advanced obstructive lung disease. 4. Deconditioning. PLAN: Continue current medications. Placement needs to be considered.
[2017-07-08] MEDS: Mometasone/Formoterol 120 PUFF INHALER INH SCH (06:49)
[2017-07-08] MEDS: Sildenafil Citrate 20 MG TAB PO SCH (08:02)
[2017-07-08] MEDS: Spironolactone 25 MG TAB PO SCH (08:02)
[2017-07-08] MEDS: Acetaminophen 325 MG TAB PO PRN (08:15)
[2017-07-08] MEDS ORDERED: predniSONE 20 MG TAB PO SCH (09:00)
[2017-07-08] MEDS ORDERED: AcetaZOLAMIDE 250 MG TAB PO SCH (09:00)
--- NOTE | 2017-07-08 10:26 | PRG ---
DATE OF SERVICE: 07/08/2017 This morning she is awake, alert, responsive, but weak. PHYSICAL EXAMINATION: VITAL SIGNS: Sats are 90% on about 2 liters, respirations 18, blood pressure 120/80, pulse 113, I's and O's 2015 in, 1670 out. CHEST: Chest revealed decreased breath sounds, no wheezing. CARDIAC: Normal S1, S2. ABDOMEN: Soft, no masses. IMPRESSION: 1. Respiratory failure. 2. Severe pulmonary hypertension. 3. Azotemia. 4. Severe diastolic dysfunction. PLAN: Switched her over to oral prednisone. Continue low dose home medication, Lasix etc. Long-term prognosis is poor. One-half hour critical care time.
[2017-07-08 11:44] VITALS: TEMP 97.8
[2017-07-08 12:47] VITALS: BP 157/87
--- NOTE | 2017-07-08 14:51 | DIS ---
PRIMARY CARE PHYSICIAN: Milady Fontana D.O. DATE OF ADMISSION: 06/27/2017 DATE OF DISCHARGE: 07/08/2017 DISCHARGE DIAGNOSES: 1. Acute respiratory failure. 2. Acute kidney injury. 3. Hyperkalemia. 4. Hyponatremia. 5. Urinary tract infection with Escherichia coli. 6. Intracranial bleed. 7. Abnormal liver function tests. 8. Severe pulmonary hypertension. 9. Physical deconditioning. CONDITION OF PATIENT AT THE TIME OF DISCHARGE: Stable. I assessed Ms. Mejia on the day of discharg e. She reports generalized weakness. She denies any chest pain or shortness of breath. Vital signs are stable. S1 and S2 are heard, regular. Occasional expiratory wheeze present on auscultation. DISCHARGE MEDICATIONS: Dulcolax 10 mg daily as needed, cetirizine 10 mg daily as needed, Lasix 20 mg daily, levofloxacin 500 mg daily for 3 more days, lisinopril 10 mg daily, mometasone/formoterol 2 pu ffs 2 times a day, prednisone 20 mg 2 times a day, sildenafil 20 mg daily, spironolactone 25 mg daily , and DuoNeb q.6 hours p.r.n. and q.4 hours. CONSULTATIONS DURING THIS HOSPITALIZATION: Pulmonology, Dr. Andrews; Neurosurgery, Dr. Li. HOSPITAL COURSE: Ms. Mejia is a pleasant 66-year-old lady who was admitted to [facility] on 06/27/2017 for acute respiratory failure. She was intubated at the time of admission . She was admitted to the critical care unit. She was found to have hyperkalemia, hyponatremia, and acute kidney injury. She was also found to have urinary tract infection. She was treated with broa d spectrum antibiotics. She also had an intracranial bleed. Neurosurgery service was consulted. e had followup MRI. After seeing the patient as well as the tests, neurosurgical service felt that t here was no acute issue. She was extubated on 06/28/2017. On 07/01/2017, she had respiratory distress on the floor. She was re-intubated and transferred to Critical Care Unit. After discussion between family and Critical Car e Service, patient was made DNR. She was extubated on 07/03/2017. She continued to be deconditioned . She was transferred to the medical floor. She is now being discharged to [facility] for further management. She had 2D echocardiogram on 07/03/2017. Her left ventricular ejection fraction was estimated at 55- 60%. She was found to have severely enlarged right ventricle cavity, moderately reduced right ventri bryant global systolic function, mild mitral regurgitation, severe tricuspid regurgitation, and severe p ulmonary artery hypertension with pulmonary artery systolic pressure of 120 mm. She has been started on sildenafil. She also had abnormal liver function tests. This improved during the hospitalization. Abdominal ult rasound on 06/29/2017 showed multiple cholelithiasis without ductal dilatation, minimal ascites, and small right pleural effusion. During this hospitalization, her influenza screen was negative. Urine cultures grew Escherichia coli . Blood cultures did not show any growth. She had a CT scan of the brain without contrast on 06/27/2017, which showed probable small amount of acute subarachnoid hemorrhage. This was again seen on followup CT scan on 06/28/2017. She went on t o have MRI of the brain without contrast, which showed tiny punctate foci of acute infarction versus T2 shine-through in the left frontal lobe, probable punctate focus of T2 shine-through in the right c erebellar hemisphere and focus of blooming artifact and deep white matter posteriorly on the right, l ikely correlating with dystrophic focal calcifications seen on the CT scan. The radiologist said jacklyn t this could be better assessed with followup imaging with and without contrast media. After the MRI scan was reviewed by Neurosurgery service, who did not see any evidence of tumor. They felt that th e punctate areas of restricted diffusion were from diffuse axonal injury. She also received diuretics for volume overload/CHF. Her family is aware that she has severe COPD and that her long-term prognosis is poor. Many thanks for allowing me to participate in your patient's care. Please feel free to contact me wi th any questions or concerns. DISCHARGE DESTINATION: [facility]. TOTAL AMOUNT OF TIME SPENT COORDINATING THIS DISCHARGE: 38 minutes.
--- NOTE | 2017-07-17 16:24 | PQF ---
DIAZFILOMENA DUARTE MARI GOODWIN [id number] CLINICAL DOCUMENTATION CLARIFICATION FORM: POST DISCHARGE Addendum to original discharge summary date: ____07/21/2017 Late entry note date: __ FILOMENA ALARCON [id number] MARI GOODWIN PLEASE DOCUMENT YOUR RESPONSE BELOW PLEASE FAX RESPONSE BACK TO YOUR INPUT IS NEEDED TO CORRECTLY CODE A DIAGNOSIS FOR YOUR PATIENT. DATE: 07/17/2017 ATTN: MARI GOODWIN MD Please exercise your independent, professional judgment in responding to the clarification form. Clinical indicators are provided on the bottom of this form for your review Please check appropriate box(s) to clarify if the following diagnosis has been ruled in our ruled out: SEPSIS [ X ] Ruled in diagnosis [ ] Continue to treat [ X ] Resolved [ ] Ruled out diagnosis [ ] Cannot rule out diagnosis [ ] Other diagnosis [ ] Unable to determine In addition, please specify: Present on Admission (POA): [ X ] Yes [ ] No [ ] Unable to determine For continuity of documentation, please document condition throughout progress notes and discharge summary. Thank You. CLINICAL INDICATORS - SIGNS / SYMPTOMS / LABS H&P VITAL SIGNS: BP 125/76, Pulse 77, She is breathing at rate of 20 and saturating 100% on ventilator. She is afebrile. LABORATORY DATA: Lactic acid elevated at 3.1 CONSULTATION- 06/28 HISTORY OF PRESENT ILLNES: She had acute respiratory failure and sepsis as well as UTI and her BNP is 3689. VITAL SIGNS: She is slightly hypotensive at 92/58 LABORATORY DATA: White blood cell count is 11.9, hemoglobin is 16.6 and hematocrit is 51. : On urine she has UTI ER VITAL SIGNS: BP 117/73, Pulse 100, Resp 26, Pain UTR, Temp 96.8, O2 sat 93 on 2L Oxygen DIAGNOSIS: respiratory failure, ADDITIONAL: ARF, Hyperkalemia, sepsis, UTI. RISK FACTORS UTI Acure Respiratory Failure with hypoxia Acure Respiratory Failure with hypercapnia Encephalopathy TREATMENTS Antibiotics (This form is maintained as a part of the permanent medical record) 2014 [employer]. All Rights Reserved Tam [email or web address] [phone] MTDD
--- NOTE | 2017-07-21 18:28 | ADD-DIS ---
ADDENDUM Ms. Mejia's discharge diagnoses also include sepsis.
== END 2017-07-08 12:25 | DRG 871 ==
LOC: ERS 16:24 → CCU 19:20 → 2SE 06-30 19:56 → CCU 07-01 11:28 → T4-A 07-05 16:35
PROVIDERS: ADMIT Internal Medicine; ATTEND Internal Medicine
PROC: 5A1945Z Respiratory Ventilation, 24-96 Consecutive Hours (ICD-10-PCS; principal; 2017-06-27)
PROC: 0BH17EZ Insertion of Endotracheal Airway into Trachea, Via Natural or Artificial Opening (ICD-10-PCS; 2017-06-27)
PROC: 02H633Z Insertion of Infusion Device into Right Atrium, Percutaneous Approach (ICD-10-PCS; 2017-06-27)
DX: A41.9 Sepsis, unspecified organism (principal); K72.00 Acute and subacute hepatic failure without coma; N17.9 Acute kidney failure, unspecified; G93.49 Other encephalopathy; J90 Pleural effusion, not elsewhere classified; J96.02 Acute respiratory failure with hypercapnia; J96.01 Acute respiratory failure with hypoxia; I95.9 Hypotension, unspecified; E87.2 Acidosis; J44.1 Chronic obstructive pulmonary disease with (acute) exacerbation; S06.6X0A Traumatic subarachnoid hemorrhage without loss of consciousness, initial encounter; R18.8 Other ascites; E87.1 Hypo-osmolality and hyponatremia; N39.0 Urinary tract infection, site not specified; I47.1 Supraventricular tachycardia; I13.0 Hypertensive heart and chronic kidney disease with heart failure and stage 1 through stage 4 chronic kidney disease, or unspecified chronic kidney disease; I50.9 Heart failure, unspecified; I27.20 Pulmonary hypertension, unspecified; I50.810 Right heart failure, unspecified; E87.5 Hyperkalemia; I08.1 Rheumatic disorders of both mitral and tricuspid valves; B96.20 Unspecified Escherichia coli [E. coli] as the cause of diseases classified elsewhere; R79.89 Other specified abnormal findings of blood chemistry; Z66 Do not resuscitate; K80.20 Calculus of gallbladder without cholecystitis without obstruction; Z91.14 Patient's other noncompliance with medication regimen; Z90.710 Acquired absence of both cervix and uterus; F17.210 Nicotine dependence, cigarettes, uncomplicated; Z51.5 Encounter for palliative care; G93.9 Disorder of brain, unspecified; Z87.01 Personal history of pneumonia (recurrent); I49.5 Sick sinus syndrome; N18.2 Chronic kidney disease, stage 2 (mild)
CPT/HCPCS: 31500; 36415; 36416; 36556; 51702; 70450; 70551; 71045; 74018; 76700; 80048; 80053; 80076; 80306; 80307; 81003; 81015; 82140; 82436; 82550; 82553; 82570; 82805; 83605; 83735; 83880; 84100; 84133; 84300; 84484; 85025; 85379; 85610; 85730; 87040; 87077; 87086; 87186; 93005; 93010; 93306; 94002; 94003; 94640; 94660; 94664; 96361; 96365; 96366; 96367; 96368; 96375; A4216; G8978-GP-CM; G8979-GP-CL; G8987-GO-CL; G8987-GO-CN; G8988-GO-CJ; G8988-GO-CL; G8996-GN-CK; G8996-GN-CL; G8997-GN-CI; J1815; J1940; J1956; J2060; J2270; J2543; J2704; J2920; J3370; J7050; J7506; J7620